=== PATIENT | female | born 1945 | race Caucasian/White ===

== ENCOUNTER 2020-07-17 18:18 | Emergency (ER) | payer MEDICARE, SELFPAY ==
--- NOTE | ~2020-07-17 | XR_ITS ---
EXAMINATION: XR FOOT, LEFT CLINICAL INFORMATION: Pain and swelling COMPARISON: None TECHNIQUE: AP, lateral, and oblique views of the left foot. 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 No radiographic evidence of bone erosions. There is flattening of midfoot arch suggesting pes planus. XR/XR foot LT min 3V IMPRESSION: Intertarsal arthrodesis. Degenerative arthritis first metatarsophalangeal joint. Pes planus.
[2020-07-17 18:37] VITALS: BP 127/99; PULSE 67; RESP 18; TEMP 36.7; O2SAT 94; BMI 24.3
--- NOTE | 2020-07-17 21:22 | ED_ITS ---
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 Reports fell small pinch and looked down and noted discoloration. Denies injury, trauma, crushing, numbness, tingling, fever/chills, known tick/insect or spider bite MD complaint: foot injury Related Data Previous Rx's Medication Instructions Recorded doxycycline hyclate 100 mg PO BID 7 Days #14 tab 07/17/20 Allergies Allergy/AdvReac Type Severity Reaction Status Date / Time NSAIDS (Non-Steroidal Allergy Intermediate DECREASE Verified 07/17/20 18:36 Anti-Inflamma PLATELETS [NSAIDS] meperidine [From Demerol] AdvReac Mild VOMITING Verified 07/17/20 18:36 nicotine [Nicoderm CQ] AdvReac Mild rash Verified 07/17/20 18:36 Review of Systems Review of Systems: Constitutional: No Fever, No Chills Cardiovascular: No Chest Pain, No SOB Respiratory: No Cough, No Wheezing Musculoskeletal: + joint pain, No Myalgias, + Joint Swelling Skin: No Skin Lesions, + rash Neuro: No Weakness, No Numbness, No Paresthesias Yes all other systems are reviewed and are negative Neurologic: Denies Sensory deficit (Neuro) [facility] Past Medical History Attestation statement: The following information was validated with the patient. Medical History (Updated 07/17/20 @ 21:27 by GO Juarez) Hypertension Social History Social History Alcohol intake: never Smoked in Last 30 Days: No Use of substances other than those prescribed or required for medical reasons: No Any prior treatment program specific to substance use: No Advance Directives: No Advance Directives Information Provided: Yes Physical Exam Vital Signs: Vital Signs: Last Vital Signs Temp 98.1 F 07/17/20 18:37 Pulse 67 07/17/20 18:37 Resp 18 07/17/20 18:37 BP 127/99 H 07/17/20 18:37 Pulse Ox 94 07/17/20 18:37 Body Mass Index 24.3 Const: General: cooperative, healthy appearing and comfortable Orientation/consciousness: patient oriented x3 Limitations: no limitations HENMT: Head: Yes normal to inspection Ears: hearing grossly normal bilaterally General nose exam: Normal external nose present Face and sinus: Yes normal facial exam Eyes: General: appearance normal, both eyes and all related structures EOM: EOMs intact bilaterally Neck: Neck: Yes normal visual inspection Resp: Effort & Inspection: normal respiratory effort Cardio: Rate: regular rate Peripheral pulses: dorsalis pedis present Skin: Other: Top of left foot with notable ecchymosis, swelling, and distal erythema. Mild tenderness to palpation. No fluctuance/induration. No pointing/drainage. NV intact. FROM toes/ankle intact Rashes: no rashes Neuro: General: patient oriented x3 Gait exam (Neuro): Normal gait present Sensory Exam: No Sensory deficit (Neuro) Extrem: General: Yes normal to inspection MDM - Extremity Injury (Lower) MDM Narrative Medical decision making narrative: On exam VSS, NAD/well-appearing, physical exam as above. Rule out fracture. Concern for possible spider bite vs bruising vs ?early cellulitis or abscess Discharge Plan Discharge Clinical Impression: Spider bite Qualifiers: Encounter type: initial encounter Injury intent: undetermined intent Qualified Code(s): T63.304A - Toxic effect of unspecified spider venom, undetermined, initial encounter Superficial bruising of foot Qualifiers: Encounter type: initial encounter Laterality: left Qualified Code(s): S90.32XA - Contusion of left foot, initial encounter Patient Disposition: Home, Self-Care Instructions: Insect Bite or Sting (ED) Additional Instructions: Keep a close eye on her foot, ice, elevate Doxycycline as an antibiotic, take as prescribed You should be re-evaluated in 2 days Area is worsening, swelling increases, redness increases, if you or chills weeks return to the ED Prescriptions: New doxycycline hyclate 100 mg tablet 100 mg PO BID 7 Days Qty: 14 RF: 0 Referrals: Trace Dickens MD [Primary Care Provider] - 2 days
== END 2020-07-17 22:43 | disposition home or self-care (01) ==
PROVIDERS: Emergency Provider Emergency Medicine; PCP Internal Medicine
DX: S90.32XA Contusion of left foot, initial encounter (principal); M79.672 Pain in left foot; W57.XXXA Bitten or stung by nonvenomous insect and other nonvenomous arthropods, initial encounter; Y93.9 Activity, unspecified; Y92.009 Unspecified place in unspecified non-institutional (private) residence as the place of occurrence of the external cause; Y99.9 Unspecified external cause status; Z79.899 Other long term (current) drug therapy
CPT/HCPCS: 73630; 99284

== ENCOUNTER 2024-01-02 08:43 | Emergency (ER) | payer MEDICARE, SELFPAY ==
--- NOTE | ~2024-01-02 | XR_ITS ---
EXAMINATION: XR CHEST CLINICAL INFORMATION: Shortness of breath COMPARISON: None available. TECHNIQUE: 2 views of the chest were obtained. FINDINGS: The lungs are well expanded. No focal consolidation. No pleural effusions or pneumothorax. The cardiac mediastinal silhouette is within normal limits. Remote appearing deformity of left lateral sixth rib. Mild degenerative changes of the visualized spine. XR/XR chest 2V IMPRESSION: No acute pulmonary disease. Electronically signed by: Amanuel Rojas MD 01/02/2024 11:32 AM EDT
[2024-01-02 08:44] VITALS: BP 135/68; PULSE 73; RESP 20; TEMP 36.1; O2SAT 95; BMI 22.7
--- NOTE | 2024-01-02 09:09 | ECG_ITS ---
Test Reason : SOB Blood Pressure : / mmHG Vent. Rate : 083 BPM Atrial Rate : 083 BPM P-R Int : 146 ms QRS Dur : 078 ms QT Int : 372 ms P-R-T Axes : 083 009 000 degrees QTc Int : 437 ms Normal sinus rhythm ST & T wave abnormality, consider inferolateral ischemia Abnormal ECG When compared with ECG of 30-DEC-2006 14:30, Premature atrial complexes are no longer Present Vent. rate has increased BY 28 BPM T wave inversion now evident in Inferior leads T wave inversion now evident in Lateral leads QT has lengthened Referred By: Roslyn Maldonado Electronically Signed By:Nba Sow
[2024-01-02 09:16] VITALS: BP 158/71; PULSE 75; RESP 17; TEMP 36.6; O2SAT 95
[2024-01-02] MEDS: Albuterol/Iprat 2.5/0.5MG 3 ML AMPUL.NEB INHALE (09:28)
[2024-01-02 09:30] VITALS: PULSE 86; RESP 18; O2SAT 95
[2024-01-02 09:53] LABS: MANUAL DIFF FLAG NO
[2024-01-02 09:55] LABS: Basophils Absolute Auto 0.1 X10*3/uL (0.0-0.2); Basophils Percent Auto 0.6 % (0-2); Eosinophils Percent Auto 0.1 % (0-4); Hematocrit 41.1 % (37.0-47.0); Hemoglobin 14.3 g/dl (12.0-16.0); Imm Gran Abs Auto 0.03 X10*3/uL (0.00-0.03); Imm Gran Pct Auto 0.3 % (0.0-0.4); Lymphocytes Absolute Auto 0.9 X10*3/uL (1.2-4.9); Lymphocytes Percent Auto 8.4 % (20-40); Mean Corpuscular HGB Conc 34.8 g/dl (31.0-35.0); Mean Corpuscular Volume 86.3 fL (80.0-98.0); Mean Platelet Volume 9.5 fL (9.4-12.3); Monocytes Absolute Auto 1.2 X10*3/uL (0.1-1.2); Monocytes Percent Auto 10.7 % (2-11); Neutrophils Absolute Auto 8.6 x10*3/uL (2.0-8.3); Neutrophils Percent Auto 79.9 % (45-73); Platelet Count 147 X10*3/uL (160-400); Red Blood Count 4.76 X10*6/uL (4.20-5.50); Red Cell Distribution Width 12.4 % (11.0-16.0); White Blood Count 10.8 X10*3/uL (4.8-10.8)
[2024-01-02 10:02] LABS: INTERNATIONAL NORM RATIO 1.1 (0.9-1.1); Prothrombin Time 12.9 SEC (10.9-12.4)
--- NOTE | 2024-01-02 10:12 | ED_ITS ---
HPI - General Adult General Chief complaint: General Medical Stated complaint: Headache, ear ache Time Seen by Provider: 01/02/24 08:59 Source: patient, RN notes reviewed and old records reviewed Mode of arrival: ambulatory History of Present Illness ED Provider: Roslyn Maldonado PA-C HPI narrative: 78-year-old female with a past medical history of hypertension, early COPD, presenting to the ED complaining of productive cough of green sputum, subjective fever, chills, headache, ear pain, SOB, decreased p.o. intake, lethargy/myalgias x 1 week. Denies chest pain, abdominal pain, vomiting, pedal edema, travel, sick contacts Related Data Previous Rx's ?Medication ?Instructions ?Recorded doxycycline hyclate 100 mg tablet 100 mg PO BID 7 days #14 tabs 07/17/20 albuterol sulfate 90 mcg/actuation 2 puff inhalation Q4-6H PRN 01/02/24 aerosol inhaler shortness of breath or wheezing #6.7 grams benzonatate 100 mg capsule 100 mg PO TID PRN cough #14 caps 01/02/24 prednisone 20 mg tablet 40 mg (2 x 20 mg) PO DAILY 5 days 01/02/24 #10 tabs Allergies Allergy/AdvReac Type Severity Reaction Status Date / Time NSAIDS (Non-Steroidal Allergy Intermediate DECREASE Verified 01/02/24 08:52 Anti-Inflamma PLATELETS [NSAIDS] meperidine [From Demerol] AdvReac Mild VOMITING Verified 01/02/24 08:52 nicotine [Nicoderm CQ] AdvReac Mild rash Verified 01/02/24 08:52 Review of Systems 2 Review of Systems: Yes all other systems are reviewed and are negative Constitutional: Constitutional: Reports as per [facility] Past Medical History Attestation statement: The following information was validated with the patient. Source: old records reviewed Medical History Hypertension Social History Social History Alcohol intake: never Smoked in Last 30 Days: No Use of substances other than those prescribed or required for medical reasons: No Advance Directives: No Advance Directives Information Provided: Yes Do you have a plan to hurt others: No Plan Physical Exam ED Vital Signs: Vital Signs - 24 hr 01/02/24 08:44 01/02/24 09:16 01/02/24 09:16 Temperature 97.0 F 97.9 F Pulse Rate 73 75 Respiratory Rate 20 17 17 Blood Pressure 135/68 158/71 H Pulse Oximetry 95 95 Oxygen Delivery Method Room Air Room Air 01/02/24 09:30 01/02/24 11:23 01/02/24 14:17 Temperature 99.0 F 98.3 F Pulse Rate 86 81 81 Respiratory Rate 18 16 16 Blood Pressure 151/71 H 154/73 H Pulse Oximetry 93 92 Oxygen Delivery Method Room Air Room Air 01/02/24 15:23 Temperature 98.3 F Pulse Rate 81 Respiratory Rate 16 Blood Pressure 154/73 H Pulse Oximetry 92 Oxygen Delivery Method Room Air BMI result Body Mass Index 22.7 Const General: cooperative, healthy appearing and no acute distress Orientation/consciousness: patient oriented x3 Limitations: no limitations HENMT Head: Yes normal to inspection and Yes atraumatic Ears: hearing grossly normal bilaterally, external ears normal, TM's normal bilaterally and mastoids normal General nose exam: Normal external nose present Face and sinus: Yes normal facial exam Mouth: Normal oral and palatal mucosa present and no drooling Throat: Yes posterior oropharynx normal, Yes tonsils normal, Yes uvula midline, No peritonsillar mass and No uvular edema Eyes General: appearance normal, both eyes and all related structures EOM: EOMs intact bilaterally Neck Neck: Yes normal visual inspection and Yes no meningeal signs Resp Effort & Inspection: normal respiratory effort and no respiratory distress Auscultation: wheezes expiratory wheezes and throughout Cardio Rate: regular rate Heart sounds: S1 normal heart sound present and S2 normal heart sound present GI Inspection: Yes normal to inspection Palpation (GI): Soft to palpation, nontender, no guarding and not rigid General: Yes no CVA tenderness Back/Spine/Pelvis Back: no CVA tenderness Skin Rashes: no rashes Wounds: no wounds Neuro General: patient oriented x3, tone normal and no meningeal signs Cranial nerves: Yes CN's II-XII intact bilaterally Gait exam (Neuro): Normal gait present Extrem General: Yes normal to inspection, Yes no pedal edema and Yes no calf tenderness Course Course Course Narrative: -labs reassuring. Troponin x2 without significant rise, mi unlikely. -Viral studies negative. Rapid strep negative XR chest 2V IMPRESSION: No acute pulmonary disease. > on re-evaluation lungs CTA. Reports symptomatic improvement. Safe for discharge home at this time. Results discussed with patient including worrisome signs and symptoms and strict return precautions, and when to return to the emergency department. They verbalized understanding and feel safe for discharge at this time. Medications Administered Discontinued Medications Generic Name Dose Route Start Last Admin Trade Name Fredis PRN Reason Stop Dose Admin Acetaminophen 650 mg 01/02/24 15:10 01/02/24 15:23 Acetaminophen 325 Mg Tablet PO 01/02/24 15:11 650 mg ONCE ONE Administration Albuterol/Ipratropium 3 ml 01/02/24 09:23 01/02/24 09:28 Albuterol/Iprat 2.5/0.5mg 3 Ml Ampul.Neb INHALE 01/02/24 09:24 3 ml ONCE ONE Administration Prednisone 40 mg 01/02/24 12:22 01/02/24 12:33 Prednisone 20 Mg Tablet PO 01/02/24 12:23 40 mg ONCE ONE Administration Medical Decision Making Medical Decision Making [facility] Narrative: 78-year-old female with a past medical history of hypertension, early COPD, presenting to the ED complaining of productive cough of green sputum, subjective fever, chills, headache, ear pain, SOB, decreased p.o. intake, lethargy/myalgias x 1 week. On exam vital signs stable, NAD, talking in complete sentences, diffuse expiratory wheeze noted, abdomen soft/nontender, no pedal edema. Concern for viral illness vs bronchitis vs pneumonia vs COPD exacerbation. Low suspicion for severe sepsis at this time. No evidence of ENGRAVER BLOCK/retropharyngeal abscess or otitis media/externa Plan: EKG, labs, CXR, viral testing, ED bronch protocol, re-evaluate Please refer to course for remaining clinical decision making, interpretation of labs/imaging results, and discussions with consultants and/or family members. Differential Diagnosis Differential Diagnoses: The differential diagnosis associated with the presentation includes As above Admission/Observation Consideration of admission/observation: Escalation of care including admission/observation considered Lab Data [facility] Lab Attestation statement: I reviewed the patient's lab results. 01/02/24 09:45 01/02/24 09:45 Labs: Lab Results 01/02/24 01/02/24 01/02/24 Range/Units 09:45 10:05 12:52 WBC 10.8 (4.8-10.8) X10*3/uL RBC 4.76 (4.20-5.50) X10*6/uL Hgb 14.3 (12.0-16.0) g/dl Hct 41.1 (37.0-47.0) % MCV 86.3 (80.0-98.0) fL MCH 30.0 (27.0-33.0) pg MCHC 34.8 (31.0-35.0) g/dl RDW 12.4 (11.0-16.0) % Plt Count 147 L (160-400) X10*3/uL MPV 9.5 (9.4-12.3) fL Immature Gran % (Auto) 0.3 (0.0-0.4) % Neut % (Auto) 79.9 H (45-73) % Lymph % (Auto) 8.4 L (20-40) % [place] % (Auto) 10.7 (2-11) % Eos % (Auto) 0.1 (0-4) % Baso % (Auto) 0.6 (0-2) % Lymph # (Auto) 0.9 L (1.2-4.9) X10*3/uL [place] # (Auto) 1.2 (0.1-1.2) X10*3/uL Eos # (Auto) 0.0 (0.0-0.4) X10*3/uL Baso # (Auto) 0.1 (0.0-0.2) X10*3/uL Abs Immat Gran (auto) 0.03 (0.00-0.03) X10*3/uL Absolute Neuts (auto) 8.6 H (2.0-8.3) x10*3/uL Absolute Nucleated RBC 0.000 (0.0-0.012) X10*3/uL Nucleated RBC % (auto) 0.0 (0.0-0.2) /100WBC PT 12.9 H (10.9-12.4) SEC INR 1.1 (0.9-1.1) Sodium 138 (135-145) mmol/L Potassium 3.7 (3.3-5.1) mmol/L Chloride 103 (96-108) mmol/L Carbon Dioxide 26 (22-29) mmol/L Anion Gap 13 (12-20) BUN 11 (9-16) mg/dL Creatinine 0.64 (0.5-1.4) mg/dL Estim Creat Clear Calc 59.1 Estimated GFR > 60 Random Glucose 136 H (60-115) mg/dL Calcium 9.7 (8.4-10.2) mg/dL Total Bilirubin 1.2 H (0.0-1.0) mg/dL Direct Bilirubin 0.4 (0.0-0.5) mg/dL AST 19 (5-31) U/L ALT 14 (0-31) U/L Alkaline Phosphatase 58 (39-117) U/L Troponin I High Sens 9.7 8.7 (<3.5-17.0) ng/L B-Natriuretic Peptide 149 H (<100) pg/mL Total Protein 6.4 L (6.5-8.0) g/dL Albumin 4.0 (3.5-5.0) g/dL Influenza Type A (PCR) NEGATIVE (Negative) Influenza Type B (PCR) NEGATIVE (Negative) RSV RNA Qual (PCR) NEGATIVE (Negative) SARS-CoV-2 RNA (RT-PCR) NEGATIVE (Negative) S. pyogenes GrpA ELBA Negative (Negative) Independent Interpretation I performed an independent interpretation of an: EKG (My interpretation EKG normal sinus rhythm a rate of 83. QTC 437. T-wave inversion now evident in inferior and lateral leads. QT has lengthened. No STEMI) Radiology Impression Discussion of test interpretation with radiology: I have reviewed the radiologist's reading. Independent Historian Clinical information obtained from an independent historian. History obtained from or confirmed by: Spouse External Record Review External record reviewed: Inpatient record, Office record, Outpatient record, Prior outpatient labs, Prior outpatient radiology, Primary care record and Outside ED record Tests considered The following testing was considered but not selected: As above Prescription Management I considered prescription management with: Pain Medication and Antibiotic Chronic Conditions Patient?s care impacted by: Other Discharge Plan Discharge Clinical Impression: Bronchitis Patient Disposition: Home, Self-Care Instructions: Acute Bronchitis (ED) Additional Instructions: Your blood work, viral testing, and x-ray were reassuring Please have close follow-up with her doctor Please use albuterol inhaler as needed for shortness of breath/wheezing Prednisone as a steroid please take as prescribed Edwin Knowles for cough, take as needed If her symptoms persist or worsen return to the ED Prescriptions: New prednisone 20 mg tablet 40 mg PO DAILY 5 Days Qty: 10 0RF benzonatate 100 mg capsule 100 mg PO TID PRN (Reason: cough) Qty: 14 0RF albuterol sulfate 90 mcg/actuation HFA aerosol inhaler 2 puff inhalation Q4-6H PRN (Reason: shortness of breath or wheezing) Qty: 6.7 0RF No Action doxycycline hyclate 100 mg tablet 100 mg PO BID 7 Days Qty: 14 0RF Referrals: Trace Dickens MD [Primary Care Provider] - 3 days Interventions: ED Discharge Assessment Last Done: 01/02/24 15:23 Discharge Date/Time: 01/02/24 15:33 Print Language: [place]ian
[2024-01-02 10:17] LABS: Alanine Aminotransferase 14 U/L (0-31); Alkaline Phosphatase 58 U/L (39-117); Anion Gap 13 (12-20); Aspartate Amino Transferase 19 U/L (5-31); Bilirubin Direct 0.4 mg/dL (0.0-0.5); Bilirubin Total 1.2 mg/dL (0.0-1.0); Blood Urea Nitrogen 11 mg/dL (9-16); Calcium 9.7 mg/dL (8.4-10.2); Carbon Dioxide 26 mmol/L (22-29); Chloride 103 mmol/L (96-108); Creatinine Clr Calc Pharmacy 59.1; Estimated Glomerular Filt Rate > 60; Glucose Random 136 mg/dL (60-115); Potassium 3.7 mmol/L (3.3-5.1); Sodium 138 mmol/L (135-145); Total Protein 6.4 g/dL (6.5-8.0)
[2024-01-02 10:24] LABS: Troponin-I High Sensitivity 9.7 ng/L (<3.5-17.0)
[2024-01-02 10:31] LABS: Influenza A PCR NEGATIVE (Negative); Influenza B PCR NEGATIVE (Negative); Resp Syncy Virus RNA Qual PCR NEGATIVE (Negative); SARS COV2 PCR INHOUSE NEGATIVE (Negative)
[2024-01-02 10:46] LABS: IDNOW Serial# 08D9AD1C; Strep A Nucleic Acid Negative (Negative)
[2024-01-02 10:57] LABS: B Type Natriuretic Peptide 149 pg/mL (<100)
[2024-01-02 11:23] VITALS: BP 151/71; PULSE 81; RESP 16; TEMP 37.2; O2SAT 93
--- NOTE | 2024-01-02 11:25 | PC.NURSE ---
Pt comes to ED today with c/o cough, wheezing, SOB, n/v/d x7-10 days. Junky cough noted--Pt seen by RT. Pt with stress incontinence of bowels from coughing on arrival. VSS, afebrile, A&Ox3
[2024-01-02] MEDS: predniSONE 20 MG TABLET 40 MG PO (12:33)
[2024-01-02 13:21] LABS: Troponin-I High Sensitivity 8.7 ng/L (<3.5-17.0)
[2024-01-02 14:17] VITALS: BP 154/73; PULSE 81; RESP 16; TEMP 36.8; O2SAT 92
[2024-01-02 15:23] VITALS: BP 154/73; PULSE 81; RESP 16; TEMP 36.8; O2SAT 92
[2024-01-02] MEDS: Acetaminophen 325 MG TABLET 650 MG PO (15:23)
== END 2024-01-02 15:33 | disposition home or self-care (01) ==
PROVIDERS: Physician Assistant; Emergency Provider Emergency Medicine; PCP Internal Medicine
DX: J40 Bronchitis, not specified as acute or chronic (principal); R51.9 Headache, unspecified; H92.03 Otalgia, bilateral; R05.9 Cough, unspecified; M79.10 Myalgia, unspecified site; R06.02 Shortness of breath; R94.31 Abnormal electrocardiogram [ECG] [EKG]; Z03.818 Encounter for observation for suspected exposure to other biological agents ruled out; Z79.899 Other long term (current) drug therapy
CPT/HCPCS: 0241U; 36415; 71046; 80048; 80076; 83880; 84484; 85025; 85610; 87651; 93005; 94640; 99283; 99285

== ENCOUNTER → 2024-01-02 09:09 | Outpatient (BNV) | payer MEDICARE, SELFPAY | PROVIDERS: Emergency Provider Emergency Medicine; PCP Internal Medicine; Visit Provider Internal Medicine Cardiovascular Disease | DX: R06.02 Shortness of breath (principal); R94.31 Abnormal electrocardiogram [ECG] [EKG] | CPT/HCPCS: 93010 ==

== ENCOUNTER 2024-03-02 07:58 | Emergency (ER) | payer MEDICARE, SELFPAY ==
--- NOTE | ~2024-03-02 | XR_ITS ---
EXAMINATION: XR FOOT, RIGHT CLINICAL INFORMATION: pain/swelling COMPARISON: None TECHNIQUE: AP, lateral, and oblique views of the right foot. FINDINGS: Diffuse demineralization. Marked degenerative changes in the first metatarsophalangeal joint with joint space narrowing and hypertrophic change. Mild degenerative changes in the IP joints of the toes. Mild periosteal reaction along the proximal medial third metatarsal shaft and proximal lateral fourth metatarsal shaft. Degenerative changes at the tarsometatarsal joints and on limited images of the mid foot. Tiny plantar and posterior calcaneal spurs. XR/XR foot RT min 3V IMPRESSION: Degenerative changes in the foot as detailed above most notable in the first metatarsophalangeal joint. Additional findings as detailed above. Correlation with clinical exam recommended to determine further management. This study was presented today to March 02, 2024 for interpretation. Stat results provided at this time as requested by referring provider. Electronically signed by: Becca Castro MD 03/02/2024 08:49 AM [facility]
--- OUTSIDE RECORDS SUMMARY | 2024-03-02 08:00 | XMS_ITS | Continuity of Care Document ---
Author Organization [facility] Zhou lt Address [address] [place] [address]- Care Team Providers Care Concrete Curer Name Role Phone Chrissie MCDONNELL, Trace Coffman Primary Care Physician [phone] Encounter [facility] Date(s): 01/15/24 - 02/14/24 [facility] Adult [address] [place] [address]- Encounter Type: Triage Allergies, Adverse Reactions, Alerts Substance Criticality Severity Reaction Reaction Severity Status Demerol HCl vomiting Active Immunizations Given and Recorded Vaccine Date Status Refusal Reason influenza virus vaccine, inactivated 11/12/23 Eusebio rded influenza virus vaccine, inactivated 12/06/22 Eusebio rded influenza virus vaccine, inactivated 11/28/20 Eusebio rded influenza virus vaccine, inactivated 11/13/19 Eusebio rded influenza virus vaccine, inactivated 1 12/11/17 Re corded influenza virus vaccine, inactivated 11/07/17 Eusebio rded influenza virus vaccine, inactivated 2 01/02/17 Re corded influenza virus vaccine, inactivated 3, 4 12/12/15 Recorded influenza virus vaccine, inactivated 5, 6 12/10/14 Recorded influenza virus vaccine, inactivated 12/26/13 Eusebio rded influenza virus vaccine, inactivated 12/17/12 Give n influenza virus vaccine, inactivated 03/10/10 Eusebio rded SARS-CoV-2(COVID-19)mRNA-LNP vac([id number]) 11/12/23 Recorded RSV vaccine preF3, recombinant 12/18/22 Recorded SARS-CoV-2 (COVID-19) mRNA-1273 vaccine 12/06/22 R ecorded SARS-CoV-2 mRNA (iyfkmiw-qyoa-llxtc) vax 7 12/01/21 Recorded SARS-CoV-2 mRNA (azznuaz-lsou-ndlvr) vax 05/19/21 Recorded Influenza Virus Vaccine (oldterm) 8 11/10/21 Recor ded Influenza Virus Vaccine (oldterm) 10/27/19 Recorde d Influenza Virus Vaccine (oldterm) 11/12/18 Recorde d SARS-CoV-2 (COVID-19) mRNA BNT-162b2 vac 12/16/20 Recorded SARS-CoV-2 (COVID-19) mRNA BNT-162b2 vac 06/11/20 Recorded SARS-CoV-2 (COVID-19) mRNA BNT-162b2 vac 05/21/20 Recorded Zoster Vaccine Live 12/30/19 Recorded Zoster Vaccine Live 9 01/27/14 Given zoster vaccine, inactivated 10/27/19 Recorded zoster vaccine, inactivated 08/09/18 Recorded zoster vaccine, inactivated 06/09/18 Recorded pneumococcal 13-valent vaccine 06/11/14 Given tetanus/diphtheria/pertussis, acel(Tdap) 06/17/13 Given pneumococcal 23-valent vaccine 06/17/10 Given [facility] 2[facility] [01/07/2017[facility] high dose 3Location History: [facility] 4Result Comment: [12/15/2015] H[facility] DOSE [facility] 6Result Comment: [12/15/2014] HIGH DOSE 7Result Comment: Moderna Covid Bivalent Booster [facility] 8Result Comment: Flu shot high dose [facility] 9Result Comment: [01/29/2014] [facility] Medications albuterol 0.083% inhalation solution 3 mL = 2.5 mg, Inhalation, Every 6 hours, PRN asthma exacerbation, # 100 each, 11 Refills, Maintenance, 01/08/24 9:47:00 AM EDT, Solution, Partial fill upon patient request if the prescription is fora schedule II opioid drug. Start Date: 01/08/24 Status: Ordered Quantity: 100.0 Unit: each Repeat number: 12 atenolol 25 mg oral tablet 1, tablet, By Mouth, 2 times a day, # 180 tablet, Refills 1, Tot. Refills 1, 07/25/23 10:35:00 AM EDT, Route to [facility]ically, [id number], 160, cm, 07/25/23 10:07:00 EDT, Height Start Date: 07/25/23 Status: Ordered Quantity: 180.0 Unit: tablet Repeat number: 2 Centrum Silver By Mouth, Daily, 0 Refills, Maintenance, 10/07/20 2:08:00 PM EDT, Partial fill upon patient request if the prescription is for a schedule II opioid drug. Start Date: 10/07/20 Status: Ordered Repeat number: 1 FLUoxetine 40 mg oral capsule 1 capsule, By Mouth, Daily, # 90 capsule, 3 Refills, Maintenance, 07/25/23 10:34:00 AM EDT, [facility]/pharmacy #[id number], 160, cm, 07/25/23 10:07:00 EDT, Height Start Date: 07/25/23 Status: Ordered Quantity: 90.0 Unit: capsule Repeat number: 4 fluticasone 50 mcg/inh nasal spray 1 sprays = 50 mcg, Nares, Both, 2 times a day, # 16 Gm, 11 Refills, Maintenance, 07/25/23 10:41:00 AM EDT, [place], [facility]/pharmacy #[id number], Partial fill upon patient request if the prescription is for a schedule II opioid drug., 1 sprays Nares, Both 2 times a day, 160, cm, 07/25/23 10:07:00 EDT, Height Start Date: 07/25/23 Status: Ordered Quantity: 16.0 Unit: g Repeat number: 12 hydroCHLOROthiazide 12.5 mg oral capsule 1 capsule, By Mouth, Daily, # 90 capsule, 1 Refills, Maintenance, 07/25/23 10:34:00 AM EDT, [facility]/pharmacy #[id number], 160, cm, 07/25/23 10:07:00 EDT, Height Start Date: 07/25/23 Status: Ordered Quantity: 90.0 Unit: capsule Repeat number: 2 Misc Rx See Instructions, Refills 0, Maintenance, over the counter Healthy Lung 1 tablet daily, 07/25/23 10:19:00 AM EDT, Supply Start Date: 07/25/23 Status: Ordered Repeat number: 1 Nebulizer/Compressor See Instructions, # 1 each, Maintenance, Use 4 times a day as needed for COPD exacerbation., 01/08/24 9:46:00 AM EDT, Supply Start Date: 01/08/24 Status: Ordered Quantity: 1.0 Unit: each Repeat number: 1 PREVAGEN PREVAGEN, Refills 0, Maintenance, 05/18/16 1:19:09 PM EST, Compound Start Date: 05/18/16 Status: Ordered Repeat number: 1 ProAir HFA 90 mcg/inh inhalation aerosol with adapter 2, puffs, Inhalation, Every 6 hours, PRN, # 8.5 Gm, Refills 11, Tot. Refills 11, Maintenance, 09/29/19 4:43:00 PM EDT, Aerosol, Route to Pharmacy Electronically, [id number], [facility]/pharmacy #[id number], 157.48, cm, 09/29/19 16:05:00 EDT, Height Start Date: 09/29/19 Status: Ordered Quantity: 8.5 Unit: g Repeat number: 12 Probiotic Formula 1 capsule, By Mouth, Daily, 0 Refills, Maintenance, 01/06/15 11:17:38 AM EDT Start Date: 01/06/15 Status: Ordered Repeat number: 1 SUMAtriptan 25 mg oral tablet 1 tablet, By Mouth, Daily, PRN NEEDED FOR MIGRAINE,MAY REPEAT DOSE AFTER 2 HOURS,MAX 2, DAILY., # 18 tablet, 5 Refills, Maintenance, 07/25/23 10:34:00 AM EDT, [facility]/pharmacy #[id number], 160, cm, 07/25/23 10:07:00 EDT, Height Start Date: 07/25/23 Status: Ordered Quantity: 18.0 Unit: tablet Repeat number: 6 Symbicort 160mcg/4.5mcg Inhaler 2, puffs, Inhalation, 2 times a day, # 10.2 Gm, Refills 11, Tot. Refills 11, Maintenance, 01/15/24 8:35:00 AM EST, Aerosol, Route to Pharmacy Electronically, [id number], [facility]/pharmacy #[id number], 160, cm, 01/08/24 9:08:00 EDT, Height Start Date: 01/15/24 Status: Ordered Quantity: 10.2 Unit: g Repeat number: 12 valsartan 80 mg oral tablet 1, tablet, By Mouth, Daily, # 90 tablet, Refills 1, Tot. Refills 1, Maintenance, 07/25/23 10:35:00 AM EDT, Route to Pharmacy Electronically, [facility]/pharmacy #[id number], 160, cm, 07/25/23 10:07:00 EDT, Height Start Date: 07/25/23 Status: Ordered Quantity: 90.0 Unit: tablet Repeat number: 2 Problem List Condition Confirmation Course Effective Dates Status Health Status Informant Adenomatous colon polyp 1, 2 Confirmed Active Anxiety Confirmed Active Atrophic vaginitis Confirmed Active Foot pain, left Confirmed Active Left calcaneal fracture Confirmed Active Esophageal reflux Confirmed Active Hx of migraine headaches Confirmed Active S/p appendectomy Confirmed Active History of colonoscopy 3 Confirmed Active S/P lumbar microdiscectomy Confirmed Active History of COVID-19 Confirmed Active Hypercholesterolemia Confirmed Active Hypertension Confirmed Active Idiopathic thrombocytopenic purpura (ITP) 4 Confirmed Active Mild intermittent asthma Confirmed Active Lung nodule Confirmed 09/14/20 Active Osteoporosis 5, 6, 7 Confirmed Active Stage 3 severe chronic obstructive pulmonary disease by Global Initiative for Chronic Obstructive Lung Disease classification Confirmed 09/28/20 Active Thyroid nodule 8 Confirmed Active 1Colonoscopy 2013 normal, repeat 2019 2Colonoscopy 2007 positive polyp, requiring transanal surgery, repeat colo scheduled for November 2013. [id number]; repeat [address] Narayan yearly 5Bone density 2020 osteopenia but no osteoporosis. 6Bone Density 2016; repeat 2019 7Osteoporosis on one view on bone density. 8CT scan of Lung 2016: 7 mm nodule in the left thyroid lobe with adjacent 2 x 4 mm coarse calcification. Social History Social History Type Response Smoking Status Former smoker, quit more than 30 days ago; Other: quit 2013; 1 ppd x 45 yrs; entered on: 11/04/20 Sex Sex Representation Female (finding) Patient Care team information Care Team Personnel Name: Trace Dickens MD Position: S Physician - Primary Care Member Role: PCP Address: [address] [place] [address]- Telecom: Care Team Related Persons Name: JONG FARR Name: GRACE CARRIZALES Insurance Providers Guarantor name: PARISH FARR Health Plan Information #: 1 Payer: [facility] [employer] Member Number: NA Policy Number: NA Group Number: NA
--- OUTSIDE RECORDS SUMMARY | 2024-03-02 08:00 | XMS_ITS | Continuity of Care Document ---
Author Organization [facility] Zhou lt Address [address] [place] [address]- Care Team Providers Care International Travel Consultant Name Role Phone Chrissie MCDONNELL, Trace Coffman Primary Care Physician Encounter [facility] Date(s): 01/22/24 - 02/21/24 [facility] Adult [address] [place] [address]- Encounter Type: Triage Allergies, Adverse Reactions, Alerts [...] virus vaccine, inactivated 03/10/10 Eusebio rded SARS-CoV-2(COVID-19)mRNA-LNP vac([id number]) 11/12/23 Recorded RSV vaccine preF3, recombinant 12/18/22 Recorded SARS-CoV-2 (COVID-19) mRNA-1273 vaccine 12/06/22 R ecorded SARS-CoV-2 mRNA (pfnqxil-vacg-arugc) vax 7 12/01/21 Recorded SARS-CoV-2 mRNA (bbskrme-fyxg-veuft) vax 05/19/21 Recorded Influenza Virus Vaccine (oldterm) [...] [facility]: [facility] 2Result Comment: [01/07/2017] [facility] high dose 3Location History: [facility] 4Result Comment: [12/15/2015] HIGH DOSE [facility] 6Result Comment: [12/15/2014] [facility] 7Result Comment: Moderna Covid Bivalent Booster [facility] Pharmacy 8Result Comment: Flu shot high dose [facility] Pharm[facility] 9Result Comment: [01/29/2014] [facility] Medications albuterol 0.083% inhalation solution 3 [...] 180 tablet, Refills 1, Tot. Refills 1, Maintenance, 02/21/24 1:32:00 PM EST, Route to Pharmacy Electronically, [id number], 160, cm, 01/27/24 8:40:00 EST,Height Start Date: 02/21/24 Status: Ordered Quantity: 180.0 Unit: tablet Repeat [...] 3 Refills, Maintenance, 07/25/23 10:34:00 AM EDT, [facility]/pharmacy #[id number], 160, cm, 07/25/23 10:07:00 EDT, Height Start Date: 07/25/23 Status: Ordered Quantity: 90.0 Unit: capsule Repeat number: 4 fluticasone 50 mcg/inh nasal spray 1 sprays = 50 mcg, Nares, Both, 2 times a day, # 16 Gm, 11 Refills, Maintenance, 07/25/23 10:41:00 AM EDT, [place], [facility]/pharmacy #[id number], Partial fill upon patient request if the prescription is for a schedule II opioid drug., 1 sprays Nares, Both 2 times a day, 160, cm, 07/25/23 10:07:00 EDT, Height Start Date: 07/25/23 Status: Ordered Quantity: 16.0 Unit: g Repeat number: 12 hydroCHLOROthiazide 12.5 mg oral capsule 1 capsule, By Mouth, Daily, # 90 capsule, 1 Refills, Maintenance, 07/25/23 10:34:00 AM EDT, [facility]/pharmacy #[id number], 160, cm, 07/25/23 10:07:00 EDT, [...] PM EDT, Aerosol, Route to Pharmacy Electronically, [id number], [facility]/pharmacy #[id number], 157.48, cm, 09/29/19 16:05:00 EDT, [...] 5 Refills, Maintenance, 07/25/23 10:34:00 AM EDT, [facility]/pharmacy #[id number], 160, cm, 07/25/23 10:07:00 EDT, Height Start Date: 07/25/23 Status: Ordered Quantity: 18.0 Unit: tablet Repeat number: 6 Symbicort 160mcg/4.5mcg Inhaler 2, puffs, Inhalation, 2 times a day, # 10.2 Gm, Refills 11, Tot. Refills 11, Maintenance, 01/15/24 8:35:00 AM EST, Aerosol, Route to Pharmacy Electronically, [id number], [facility]/pharmacy #[id number], 160, cm, 01/08/24 9:08:00 EDT, Height Start Date: 01/15/24 Status: Ordered Quantity: 10.2 Unit: g Repeat number: 12 valsartan 80 mg oral tablet 1, tablet, By Mouth, Daily, # 90 tablet, Refills 1, Tot. Refills 1, Maintenance, 07/25/23 10:35:00 AM EDT, Route to Pharmacy Electronically, [facility]/pharmacy #[id number], 160, cm, 07/25/23 10:07:00 EDT, [...] surgery, repeat colo scheduled for November 2013. [id number]; repeat [address] Narayan yearly [...] - Primary Care Member Role: PCP Address: [address] [place] [address]- Telecom: Care Team Related Persons Name: JONG FARR Name: GRACE CARRIZALES Insurance Providers Guarantor name: PARISH FARR Health Plan Information #: 1 Payer: [facility] ADVANT[facility] REPLC Member Number: NA Policy Number: NA Group Number: NA
--- OUTSIDE RECORDS SUMMARY | 2024-03-02 08:01 | XMS_ITS | Patient Health Record ---
Author [facility] Address [address] [place] [address] Care Team Providers Care It Application Development Manager Name Role Phone Trace Dickens MD Primary Care Provider Santhosh Ramey Unavailable [phone] Allergies Allergen (clinical drug ingredient) Drug/Non Drug Allergy documented on EMR Reaction Allergy Type Onset Date Status Sunlight (uncoded) bumps Allergy A ctive meperidine Demerol vomiting Drug Allergy Active Sunscreen SPF30 Red Buring neutrogena /helioplex Drug Allergy Active Reason For Referral No Information Medications Medication SIG (Take, Route, Frequency, Duration) Notes Start Date End Date Status Rtrxjjhbyz-PIVI-Rsxtrwmm 50-325-40 MG 1 capsule as needed Orally every 4 hrs Active Atenolol 25 MG 1 tablet Orally Once a day for 30 day(s) Active hydroCHLOROthiazide 12.5 MG 1 tablet in the morning Orally Once a day for 30 day(s) Active Fortify Daily Probiotic Active Focused Mind Focus Factor 1x day Active FLUoxetine HCl 40 MG 1 capsule Orally Once a day for 30 day(s) Active Valsartan 80 MG 1 tablet Orally Once a day for 30 day(s) Active Multivitamin Women A ctive Immunizations Vaccine Route Administration Date Status Comme nts COVID-19 Moderna Vaccine Unknown 12/09/2021 Administered 2020,2020 2020,2021 unsure dates Social History Tobacco Use: Social History Observation Description Date Details (start date - stop date) Former Smoker NA - NA Tobacco Use/Smoking Question Answer Notes Are you a: former smoker Additional Findings: Tobacco Non-User Ex-cigaret te smoker Alcohol Screen Question Answer Notes Did you have a drink containing alcohol in the p ast year? No Points 0 Interpretation Negative Tobacco use other than smoking: Question Answer Notes Are you an other tobacco user? No Plan Of Treatment No Information Insurance Providers Payer Name Payer Address Payer Phone Subscriber Number Group Number Insured Name Patient Relationship to Insured Coverage Start Date Coverage End Date [employer] [place] [employer]vantage [facility] [address] [place] [address] [id number] Jodee Moe Self - patient is the insured Medical (General) History Medical History History ICD Code Broken bones Depression Headaches/Migraines High blood pressure Mumps Chicken pox Joint implants/screws Surgical History Surgery Date(Month/Year) back surgery 1973 broken heel, left 2009, 03/2011 colon polyps 2006 appendectomy 1974 ovarian surgery, right 1973
--- OUTSIDE RECORDS SUMMARY | 2024-03-02 08:01 | XMS_ITS | Continuity of Care Document ---
Author Organization [facility] Zhou lt Address [address] [place] [address]- Care Team Providers Care Automatic Vulcanizing Operator Name Role Phone Chrissie MCDONNELL, Trace Coffman Primary Care Physician [phone] [place] [facility] Date(s): 01/27/24 - 02/03/24 [facility] Adult [address] [place] [address]- Encounter Diagnosis Hypertension(Discharge Diagnosis) - 01/27/24 Anxiety(Discharge Diagnosis) - 01/27/24 Depression, major, recurrent, in remission(Discharge Diagnosis) - 01/27/24 Hx of migraine headaches(Discharge Diagnosis) - 01/27/24 Stage 3 severe chronic obstructive pulmonary disease by Global Initiative for Chronic Obstructive Lung Disease classification(Discharge Diagnosis) - 01/27/24 Mild intermittent asthma(Discharge Diagnosis) - 01/27/24 Idiopathic thrombocytopenic purpura (ITP)(Discharge Diagnosis) - 01/27/24 Lung nodule(Discharge Diagnosis) - 01/27/24 Attending Physician: Nargis Salmon NP Referring Physician: Trace Dickens MD Encounter Type: Office Visit Allergies, Adverse Reactions, Alerts Substance Criticality Severity [...] virus vaccine, inactivated 03/10/10 Eusebio rded SARS-CoV-2(COVID-19)mRNA-LNP vac([id number]) 11/12/23 Recorded RSV vaccine preF3, recombinant 12/18/22 Recorded SARS-CoV-2 (COVID-19) mRNA-1273 vaccine 12/06/22 R ecorded SARS-CoV-2 mRNA (nlllpyw-vfpz-xceqg) vax 7 12/01/21 Recorded SARS-CoV-2 mRNA (avrotle-pnox-zstwk) vax 05/19/21 Recorded Influenza Virus Vaccine (oldterm) [...] [facility]: [facility] 4Result Comment: [12/15/2015] [facility] 6Result Comment: [12/15/2014] [facility] 7Result Comment: Moderna Covid Bivalent Booster [facility] 8Result Comment: Flu shot [facility] 9[facility]: [[facility]29/2014[facility] albuterol 0.083% inhalation solution 3 mL [...] 10:35:00 AM EDT, Route to Pharmacy Electronically, [facility]/pharmacy #[id number], 160, cm, 07/25/23 10:07:00 EDT, Height [...] 3 Refills, Maintenance, 07/25/23 10:34:00 AM EDT, [facility]/pharmacy #[id number], 160, cm, 07/25/23 10:07:00 EDT, Height Start Date: 07/25/23 Status: Ordered Quantity: 90.0 Unit: capsule Repeat number: 4 fluticasone 50 mcg/inh nasal spray 1 sprays = 50 mcg, Nares, Both, 2 times a day, # 16 Gm, 11 Refills, Maintenance, 07/25/23 10:41:00 AM EDT, [place], [facility]/pharmacy #[id number], Partial fill upon patient request if the prescription is for a schedule II opioid drug., 1 sprays Nares, Both 2 times a day, 160, cm, 07/25/23 10:07:00 EDT, Height Start Date: 07/25/23 Status: Ordered Quantity: 16.0 Unit: g Repeat number: 12 hydroCHLOROthiazide 12.5 mg oral capsule 1 capsule, By Mouth, Daily, # 90 capsule, 1 Refills, Maintenance, 07/25/23 10:34:00 AM EDT, [facility]/pharmacy #[id number], 160, cm, 07/25/23 10:07:00 EDT, Height [...] PM EDT, Aerosol, Route to Pharmacy Electronically, [id number], [facility]/pharmacy #[id number], 157.48, cm, 09/29/19 16:05:00 EDT, Height [...] 5 Refills, Maintenance, 07/25/23 10:34:00 AM EDT, [facility]/pharmacy #[id number], 160, cm, 07/25/23 10:07:00 EDT, Height Start Date: 07/25/23 Status: Ordered Quantity: 18.0 Unit: tablet Repeat number: 6 Symbicort 160mcg/4.5mcg Inhaler 2, puffs, Inhalation, 2 times a day, # 10.2 Gm, Refills 11, Tot. Refills 11, Maintenance, 01/15/24 8:35:00 AM EST, Aerosol, Route to Pharmacy Electronically, [id number], [facility]/pharmacy #[id number], 160, cm, 01/08/24 9:08:00 EDT, Height Start Date: 01/15/24 Status: Ordered Quantity: 10.2 Unit: g Repeat number: 12 valsartan 80 mg oral tablet 1, tablet, By Mouth, Daily, # 90 tablet, Refills 1, Tot. Refills 1, Maintenance, 07/25/23 10:35:00 AM EDT, Route to Pharmacy Electronically, [facility]/pharmacy #[id number], 160, cm, 07/25/23 10:07:00 EDT, Height [...] 8 Confirmed Active 1Colonoscopy 2013 normal, repeat 2018 2Colonoscopy 2007 positive polyp, requiring transanal surgery, repeat colo scheduled for November 2013. [id number]; repeat [address] Narayan yearly 5Bone density 2020 osteopenia but no osteoporosis. 6Bone Density 2017; repeat 2019 7Osteoporosis on one view on bone density. 8CT scan of Lung 2016: 7 mm nodule in the left thyroid lobe with adjacent 2 x 4 mm coarse calcification. Diagnosis Diagnosis Type Effective Dates Health Status Clinical Service Informant Hypertension Discharge Diagnosis 01/27/24 Anxiety Discharge Diagnosis 01/27/24 Depression, major, recurrent, in remission Discharge Diagnosis 01/27/24 Hx of migraine headaches Discharge Diagnosis 01/27/24 Stage 3 severe chronic obstructive pulmonary disease by Global Initiative for Chronic Obstructive Lung Disease classification Discharge Diagnosis 01/27/24 Mild intermittent asthma Discharge Diagnosis 01/27/24 Idiopathic thrombocytopenic purpura (ITP) Discharge Diagnosis 01/27/24 Lung nodule Discharge Diagnosis 01/27/24 Vital Signs Most recent to oldest [Reference Range]: 1 2 Height 160 cm (01/27/24 8:40 AM) 160 cm (01/24/24 3:33 PM) Weight 58.3 kg (01/27/24 8:40 AM) 56.0 kg (01/24/24 3:33 PM) Oxygen Saturation [94-100 %] 97 % (01/27/24 8:40 AM) Pulse Rate [55-90 bpm] 56 bpm (01/27/24 8:40 AM) Body Mass Index [18.5-24.99 kg/m2] 22.77 kg/m2 (01/27/24 8:40 AM) Blood Pressure [90-138/55-84 mm Hg] 158/ 78mm Hg *H* (01/27/24 8:40 AM) Temperature [96.8-100.4 DegF] 97.6 DegF (01/27/24 8:40 AM) Mode of Delivery (Oxygen) Room air (01/27/24 8:40 AM) Blood pressure sites Arm, left (01/27/24 8:40 AM) Temperature Route Oral (01/27/24 8:40 AM) Weight Obtained Via Standing scale (01/27/24 8:40 AM) Social History Social History Type Response Smoking Status Former smoker, quit more than 30 days ago; Other: quit 2013; 1 ppd x 45 yrs; entered on: 11/04/20 Sex Sex Representation Female (finding) Patient Care team information Care Team Personnel Name: Trace Dickens MD Position: S Physician - Primary Care Member Role: PCP Address: [address] [place] [address]- Telecom: Care Team Related Persons Name: JONG FARR Name: GRACE CARRIZALES Insurance Providers Guarantor name: PARISH FARR Gyst Plan Information #: 1 Payer: [facility] [employer] Member Number: [id number] Policy Number: NA Group Number: [id number] Health Plan Information #: 2 Payer: [facility] [employer] Member Number: [id number] Policy Number: NA Group Number: NA
--- OUTSIDE RECORDS SUMMARY | 2024-03-02 08:01 | XMS_ITS | Continuity of Care Document ---
Author Organization [facility] Zhou lt Address [address] [place] [address]- Care Team Providers Care Transit Clerk Name Role Phone Chrissie MCDONNELL, Trace Coffman Primary Care Physician [phone] Encounter [facility] Date(s): 01/15/24 - 02/14/24 [facility] Adult [address] [place] [address]- Encounter Type: Triage Allergies, Adverse Reactions, Alerts [...] virus vaccine, inactivated 03/10/10 Eusebio rded SARS-CoV-2(COVID-19)mRNA-LNP vac([id number]) 11/12/23 Recorded RSV vaccine preF3, recombinant 12/18/22 Recorded SARS-CoV-2 (COVID-19) mRNA-1273 vaccine 12/06/22 R ecorded SARS-CoV-2 mRNA (clgphps-dgtn-cdidw) vax 7 12/01/21 Recorded SARS-CoV-2 mRNA (uhqsdnj-boxd-otqab) vax 05/19/21 Recorded Influenza Virus Vaccine (oldterm) [...] [facility]] [facility] 2[facility] Comment: [01/07/2017[facility] high dose 3Location History: [facility] 4Result Comment: [12/15/2015] H[facility] DOSE [facility] 6Result Comment: [12/15/2014] [facility] 7Result Comment: Moderna Covid Bivalent Booster [facility] 8Result Comment: Flu shot high dose [facility] 9Result Comment: [01/29/2014] [facility] Medications albuterol 0.083% inhalation solution 3 [...] AM EDT, Route to [facility] Electronically, [id number], 160, cm, 07/25/23 10:07:00 EDT, Height Start [...] 3 Refills, Maintenance, 07/25/23 10:34:00 AM EDT, [facility]/pharmacy #[id number], 160, cm, 07/25/23 10:07:00 EDT, Height Start Date: 07/25/23 Status: Ordered Quantity: 90.0 Unit: capsule Repeat number: 4 fluticasone 50 mcg/inh nasal spray 1 sprays = 50 mcg, Nares, Both, 2 times a day, # 16 Gm, 11 Refills, Maintenance, 07/25/23 10:41:00 AM EDT, [place], [facility]/pharmacy #[id number], Partial fill upon patient request if the prescription is for a schedule II opioid drug., 1 sprays Nares, Both 2 times a day, 160, cm, 07/25/23 10:07:00 EDT, Height Start Date: 07/25/23 Status: Ordered Quantity: 16.0 Unit: g Repeat number: 12 hydroCHLOROthiazide 12.5 mg oral capsule 1 capsule, By Mouth, Daily, # 90 capsule, 1 Refills, Maintenance, 07/25/23 10:34:00 AM EDT, [facility]/pharmacy #[id number], 160, cm, 07/25/23 10:07:00 EDT, [...] PM EDT, Aerosol, Route to Pharmacy Electronically, [id number], [facility]/pharmacy #[id number], 157.48, cm, 09/29/19 16:05:00 EDT, [...] 5 Refills, Maintenance, 07/25/23 10:34:00 AM EDT, [facility]/pharmacy #[id number], 160, cm, 07/25/23 10:07:00 EDT, Height Start Date: 07/25/23 Status: Ordered Quantity: 18.0 Unit: tablet Repeat number: 6 Symbicort 160mcg/4.5mcg Inhaler 2, puffs, Inhalation, 2 times a day, # 10.2 Gm, Refills 11, Tot. Refills 11, Maintenance, 01/15/24 8:35:00 AM EST, Aerosol, Route to Pharmacy Electronically, [id number], [facility]/pharmacy #[id number], 160, cm, 01/08/24 9:08:00 EDT, Height Start Date: 01/15/24 Status: Ordered Quantity: 10.2 Unit: g Repeat number: 12 valsartan 80 mg oral tablet 1, tablet, By Mouth, Daily, # 90 tablet, Refills 1, Tot. Refills 1, Maintenance, 07/25/23 10:35:00 AM EDT, Route to Pharmacy Electronically, [facility]/pharmacy #[id number], 160, cm, 07/25/23 10:07:00 EDT, [...] surgery, repeat colo scheduled for November 2013. [id number]; repeat [address] Narayan yearly [...] - Primary Care Member Role: PCP Address: [address] [place] [address]- Telecom: Care Team Related Persons Name: JONG FARR Name: GRACE CARRIZALES Insurance Providers Guarantor name: PARISH FARR Health Plan Information #: 1 Payer: [facility] ADVANTAGE REPLC Member Number: NA Policy Number: NA Group Number: NA
--- OUTSIDE RECORDS SUMMARY | 2024-03-02 08:01 | XMS_ITS | Continuity of Care Document ---
Author Organization [facility] Zhou lt Address [address] [place] [address]- Care Team Providers Care Shipyard Laborer Name Role Phone Chrissie MCDONNELL, Trace Coffman Primary Care Physician [phone] [place] [facility] [place] 02/01/24 [facility] Adult [address] [place] [address]- Attending Physician: Not on Staff, Attending MD Encounter Type: Pre Office Visit Allergies, Adverse Reactions, Alerts Substance [...] virus vaccine, inactivated 03/10/10 Eusebio rded SARS-CoV-2(COVID-19)mRNA-LNP vac([id number]) 11/12/23 Recorded RSV vaccine preF3, recombinant 12/18/22 Recorded SARS-CoV-2 (COVID-19) mRNA-1273 vaccine 12/06/22 R ecorded SARS-CoV-2 mRNA (zcxgqmt-kzlp-amygp) vax 7 12/01/21 Recorded SARS-CoV-2 mRNA (ipbsmlf-inwi-sguew) vax 05/19/21 Recorded Influenza Virus Vaccine (oldterm) [...] Comment: [[facility]/10/2018[facility]: [[facility]07[facility]2017[facility] 4Result Comment: [...] 10:35:00 AM EDT, Route to Pharmacy Electronically, [facility]/pharmacy #[id number], 160, cm, 07/25/23 10:07:00 EDT, [...] 3 Refills, Maintenance, 07/25/23 10:34:00 AM EDT, [facility]/pharmacy #[id number], 160, cm, 07/25/23 10:07:00 EDT, Height Start Date: 07/25/23 Status: Ordered Quantity: 90.0 Unit: capsule Repeat number: 4 fluticasone 50 mcg/inh nasal spray 1 sprays = 50 mcg, Nares, Both, 2 times a day, # 16 Gm, 11 Refills, Maintenance, 07/25/23 10:41:00 AM EDT, [place], [facility]/pharmacy #[id number], Partial fill upon patient request if the prescription is for a schedule II opioid drug., 1 sprays Nares, Both 2 times a day, 160, cm, 07/25/23 10:07:00 EDT, Height Start Date: 07/25/23 Status: Ordered Quantity: 16.0 Unit: g Repeat number: 12 hydroCHLOROthiazide 12.5 mg oral capsule 1 capsule, By Mouth, Daily, # 90 capsule, 1 Refills, Maintenance, 07/25/23 10:34:00 AM EDT, [facility]/pharmacy #[id number], 160, cm, 07/25/23 10:07:00 EDT, [...] PM EDT, Aerosol, Route to Pharmacy Electronically, [id number], [facility]/pharmacy #[id number], 157.48, cm, 09/29/19 16:05:00 EDT, [...] 5 Refills, Maintenance, 07/25/23 10:34:00 AM EDT, [facility]/pharmacy #[id number], 160, cm, 07/25/23 10:07:00 EDT, Height Start Date: 07/25/23 Status: Ordered Quantity: 18.0 Unit: tablet Repeat number: 6 Symbicort 160mcg/4.5mcg Inhaler 2, puffs, Inhalation, 2 times a day, # 10.2 Gm, Refills 11, Tot. Refills 11, Maintenance, 01/15/24 8:35:00 AM EST, Aerosol, Route to Pharmacy Electronically, [id number], [facility]/pharmacy #[id number], 160, cm, 01/08/24 9:08:00 EDT, Height Start Date: 01/15/24 Status: Ordered Quantity: 10.2 Unit: g Repeat number: 12 valsartan 80 mg oral tablet 1, tablet, By Mouth, Daily, # 90 tablet, Refills 1, Tot. Refills 1, Maintenance, 07/25/23 10:35:00 AM EDT, Route to Pharmacy Electronically, [facility]/pharmacy #[id number], 160, cm, 07/25/23 10:07:00 EDT, [...] Active Thyroid nodule 8 Confirmed Active 1Colonoscopy 2014 normal, repeat 2019 2Colonoscopy 2007 positive polyp, requiring transanal surgery, repeat colo scheduled for November 2013. [id number]; repeat [address] Narayan yearly [...] - Primary Care Member Role: PCP Address: [address] [place] [address]- Telecom: Care Team Related Persons Name: JONG FARR Name: GRACE CARRIZALES Insurance Providers Guarantor name: PARISH FARR Health Plan Information #: 1 P[facility] Member Number: [id number] Policy Number: NA Group Number: [id number] Health Plan Information #: 2 Payer: [facility] Member Number: [id number] Policy Number: NA Group Number: NA
--- OUTSIDE RECORDS SUMMARY | 2024-03-02 08:01 | XMS_ITS | Continuity of Care Document ---
Author Organization [facility] Zhou lt Address [address] [place] [address]- Care Team Providers Care Ship Scraper Name Role Phone Chrissie MCDONNELL, Trace Coffman Primary Care Physician [phone] [place] [facility] [place] 02/02/24 [facility] Adult [address] [place] [address]- Encounter Type: Triage Allergies, Adverse Reactions, Alerts [...] virus vaccine, inactivated 03/10/10 Eusebio rded SARS-CoV-2(COVID-19)mRNA-LNP vac([id number]) 11/12/23 Recorded RSV vaccine preF3, recombinant 12/18/22 Recorded SARS-CoV-2 (COVID-19) mRNA-1273 vaccine 12/06/22 R ecorded SARS-CoV-2 mRNA (ygkiixr-olhm-furdj) vax 7 12/01/21 Recorded SARS-CoV-2 mRNA (gzvfhkn-dafd-cgdov) vax 05/19/21 Recorded Influenza Virus Vaccine (oldterm) [...] 1[facility] Comment: [facility]2018[facility] 2Result Comment: [01/07/2017] [facility] high dose 3[facility] 4Result Comment: [12/15/2015] [facility] 6Result Comment: [12/15/2014] [facility] 7Result Comment: Moderna Covid Bivalent Booster [facility] 8Result Comment: Flu shot [facility] 9Result Comment: [01/29/2014] [facility] Medications albuterol 0.083% inhalation solution 3 [...] 10:35:00 AM EDT, Route to Pharmacy Electronically, [facility]/pharmacy #[id number], 160, cm, 07/25/23 10:07:00 EDT, [...] 3 Refills, Maintenance, 07/25/23 10:34:00 AM EDT, [facility]/pharmacy #[id number], 160, cm, 07/25/23 10:07:00 EDT, Height Start Date: 07/25/23 Status: Ordered Quantity: 90.0 Unit: capsule Repeat number: 4 fluticasone 50 mcg/inh nasal spray 1 sprays = 50 mcg, Nares, Both, 2 times a day, # 16 Gm, 11 Refills, Maintenance, 07/25/23 10:41:00 AM EDT, [place], [facility]/pharmacy #[id number], Partial fill upon patient request if the prescription is for a schedule II opioid drug., 1 sprays Nares, Both 2 times a day, 160, cm, 07/25/23 10:07:00 EDT, Height Start Date: 07/25/23 Status: Ordered Quantity: 16.0 Unit: g Repeat number: 12 hydroCHLOROthiazide 12.5 mg oral capsule 1 capsule, By Mouth, Daily, # 90 capsule, 1 Refills, Maintenance, 07/25/23 10:34:00 AM EDT, [facility]/pharmacy #[id number], 160, cm, 07/25/23 10:07:00 EDT, [...] PM EDT, Aerosol, Route to Pharmacy Electronically, [id number], [facility]/pharmacy #[id number], 157.48, cm, 09/29/19 16:05:00 EDT, [...] 5 Refills, Maintenance, 07/25/23 10:34:00 AM EDT, [facility]/pharmacy #[id number], 160, cm, 07/25/23 10:07:00 EDT, Height Start Date: 07/25/23 Status: Ordered Quantity: 18.0 Unit: tablet Repeat number: 6 Symbicort 160mcg/4.5mcg Inhaler 2, puffs, Inhalation, 2 times a day, # 10.2 Gm, Refills 11, Tot. Refills 11, Maintenance, 01/15/24 8:35:00 AM EST, Aerosol, Route to Pharmacy Electronically, [id number], [facility]/pharmacy #[id number], 160, cm, 01/08/24 9:08:00 EDT, Height Start Date: 01/15/24 Status: Ordered Quantity: 10.2 Unit: g Repeat number: 12 valsartan 80 mg oral tablet 1, tablet, By Mouth, Daily, # 90 tablet, Refills 1, Tot. Refills 1, Maintenance, 07/25/23 10:35:00 AM EDT, Route to Pharmacy Electronically, [facility]/pharmacy #[id number], 160, cm, 07/25/23 10:07:00 EDT, [...] surgery, repeat colo scheduled for November 2013. [id number]; repeat [address] Narayan yearly [...] Team Personnel Name: Trace Dickens MD Position: [facility] Physician - Primary Care Member Role: PCP Address: [address] [place] [address]- Telecom: Care Team Related Persons Name: JONG FARR Name: GRACE CARRIZALES Insurance Providers Guarantor name: PARISH BETTEKYLE Health Plan Information #: 1 Payer: [facility] ADVANTAGE RE[employer] Member Number: NA Policy Number: NA Group Number: NA
--- OUTSIDE RECORDS SUMMARY | 2024-03-02 08:01 | XMS_ITS | Continuity of Care Document ---
Author Organization [facility] Zhou lt Address [address] [place] [address]- Care Team Providers Care Counter Weigher Name Role Phone Chrissie MCDONNELL, Trace Coffman Primary Care Physician [phone] Encounter [facility] [place] Date(s): 01/21/24 - 02/20/24 [facility] Adult [address] [place] [address]- Encounter Type: Triage Allergies, Adverse Reactions, Alerts [...] virus vaccine, inactivated 03/10/10 Eusebio rded SARS-CoV-2(COVID-19)mRNA-LNP vac(fpr993) 11/12/23 Recorded RSV vaccine preF3, recombinant 12/18/22 Recorded SARS-CoV-2 (COVID-19) mRNA-1273 vaccine 12/06/22 R ecorded SARS-CoV-2 mRNA (xnaalok-njov-mnaba) vax 7 12/01/21 Recorded SARS-CoV-2 mRNA (awmebsh-orog-qldpo) vax 05/19/21 Recorded Influenza Virus Vaccine (oldterm) [...] Comment: [[facility]/10/2018] [facility] Comment: [01/07/2017] [facility] high dose 3Location History: [facility] 4Result Comment: [12/15/2015] [facility] DO[facility] 6Result Comment: [12/15/2014] [facility] 7Result Comment: Moderna Covid Bivalent Booster [facility] Pharmacy 8Result Comment: Flu shot high dose [facility] Pharm[facility] 9Result Comment: [01/29/2014] [facility] Medications albuterol 0.083% inhalation solution 3 mL [...] AM EDT, Route to Pharmacy Electronically, [id number], 160, cm, 07/25/23 10:07:00 EDT, Height Start [...] 3 Refills, Maintenance, 07/25/23 10:34:00 AM EDT, [facility]/pharmacy #0693, 160, cm, 07/25/23 10:07:00 EDT, Height Start Date: 07/25/23 Status: Ordered Quantity: 90.0 Unit: capsule Repeat number: 4 fluticasone 50 mcg/inh nasal spray 1 sprays = 50 mcg, Nares, Both, 2 times a day, # 16 Gm, 11 Refills, Maintenance, 07/25/23 10:41:00 AM EDT, [place], [facility]/pharmacy #0693, Partial fill upon patient request if the prescription is for a schedule II opioid drug., 1 sprays Nares, Both 2 times a day, 160, cm, 07/25/23 10:07:00 EDT, Height Start Date: 07/25/23 Status: Ordered Quantity: 16.0 Unit: g Repeat number: 12 hydroCHLOROthiazide 12.5 mg oral capsule 1 capsule, By Mouth, Daily, # 90 capsule, 1 Refills, Maintenance, 07/25/23 10:34:00 AM EDT, [facility]/pharmacy #0693, 160, cm, 07/25/23 10:07:00 EDT, Height [...] PM EDT, Aerosol, Route to Pharmacy Electronically, [id number], [facility]/pharmacy #0693, 157.48, cm, 09/29/19 16:05:00 EDT, Height [...] 5 Refills, Maintenance, 07/25/23 10:34:00 AM EDT, [facility]/pharmacy #0693, 160, cm, 07/25/23 10:07:00 EDT, Height Start Date: 07/25/23 Status: Ordered Quantity: 18.0 Unit: tablet Repeat number: 6 Symbicort 160mcg/4.5mcg Inhaler 2, puffs, Inhalation, 2 times a day, # 10.2 Gm, Refills 11, Tot. Refills 11, Maintenance, 01/15/24 8:35:00 AM EST, Aerosol, Route to Pharmacy Electronically, [id number], [facility]/pharmacy #0693, 160, cm, 01/08/24 9:08:00 EDT, Height Start Date: 01/15/24 Status: Ordered Quantity: 10.2 Unit: g Repeat number: 12 valsartan 80 mg oral tablet 1, tablet, By Mouth, Daily, # 90 tablet, Refills 1, Tot. Refills 1, Maintenance, 07/25/23 10:35:00 AM EDT, Route to Pharmacy Electronically, [facility]/pharmacy #[id number], 160, cm, 07/25/23 10:07:00 EDT, Height [...] surgery, repeat colo scheduled for November 2013. [id number]; repeat [address] Narayan yearly [...] - Primary Care Member Role: PCP Address: [address] [place] [address]- Telecom: Care Team Related Persons Name: JONG FARR Name: GRACE CARRIZALES Insurance Providers Guarantor name: PARISH FARR Health Plan Information #: 1 Payer: [facility] ADVANT[facility] RE[employer] Member Number: NA Policy Number: NA Group Number: NA
--- OUTSIDE RECORDS SUMMARY | 2024-03-02 08:01 | XMS_ITS | Continuity of Care Document ---
Author Organization [facility] Zhou lt Address [address] [place] [address]- Care Team Providers Care Coat Examiner Name Role Phone Chrissie MCDONNELL, Trace Coffman Primary Care Physician En[place] [facility] [place] Date(s): 12/26/23 - 02/08/24 [facility] Adult [address] [place] [address]- Attending Physician: Not on Staff, Attending MD [...] virus vaccine, inactivated 03/10/10 Eusebio rded SARS-CoV-2(COVID-19)mRNA-LNP vac([id number]) 11/12/23 Recorded RSV vaccine preF3, recombinant 12/18/22 Recorded SARS-CoV-2 (COVID-19) mRNA-1273 vaccine 12/06/22 R ecorded SARS-CoV-2 mRNA (ebwpnmc-rmby-rsnmh) vax 7 12/01/21 Recorded SARS-CoV-2 mRNA (lmqgkqq-kjzx-klxqu) vax 05/19/21 Recorded Influenza Virus Vaccine (oldterm) [...] Comment: [[facility]10/2018[facility] [[facility]07[facility]2017[facility] jamshid high dose 3[facility] 4Result [...] 10:35:00 AM EDT, Route to Pharmacy Electronically, [facility]/pharmacy #[id number], 160, cm, 07/25/23 10:07:00 EDT, [...] 3 Refills, Maintenance, 07/25/23 10:34:00 AM EDT, [facility]/pharmacy #[id number], 160, cm, 07/25/23 10:07:00 EDT, Height Start Date: 07/25/23 Status: Ordered Quantity: 90.0 Unit: capsule Repeat number: 4 fluticasone 50 mcg/inh nasal spray 1 sprays = 50 mcg, Nares, Both, 2 times a day, # 16 Gm, 11 Refills, Maintenance, 07/25/23 10:41:00 AM EDT, [place], [facility]/pharmacy #[id number], Partial fill upon patient request if the prescription is for a schedule II opioid drug., 1 sprays Nares, Both 2 times a day, 160, cm, 07/25/23 10:07:00 EDT, Height Start Date: 07/25/23 Status: Ordered Quantity: 16.0 Unit: g Repeat number: 12 hydroCHLOROthiazide 12.5 mg oral capsule 1 capsule, By Mouth, Daily, # 90 capsule, 1 Refills, Maintenance, 07/25/23 10:34:00 AM EDT, [facility]/pharmacy #[id number], 160, cm, 07/25/23 10:07:00 EDT, [...] PM EDT, Aeros[place], Route to Pharmacy Electronically, [id number], [facility]/pharmacy #[id number], 157.48, cm, 09/29/19 16:05:00 EDT, [...] 5 Refills, Maintenance, 07/25/23 10:34:00 AM EDT, [facility]/pharmacy #0693, 160, cm, 07/25/23 10:07:00 EDT, Height Start Date: 07/25/23 Status: Ordered Quantity: 18.0 Unit: tablet Repeat number: 6 Symbicort 160mcg/4.5mcg Inhaler 2, puffs, Inhalation, 2 times a day, # 10.2 Gm, Refills 11, Tot. Refills 11, Maintenance, 01/15/24 8:35:00 AM EST, Aeros[place], Route to Pharmacy Electronically, [id number], [facility]/pharmacy #[id number], 160, cm, 01/08/24 9:08:00 EDT, Height Start Date: 01/15/24 Status: Ordered Quantity: 10.2 Unit: g Repeat number: 12 valsartan 80 mg oral tablet 1, tablet, By Mouth, Daily, # 90 tablet, Refills 1, Tot. Refills 1, Maintenance, 07/25/23 10:35:00 AM EDT, Route to Pharmacy Electronically, [facility]/pharmacy #[id number], 160, cm, 07/25/23 10:07:00 EDT, [...] surgery, repeat colo scheduled for November 2013. [id number]; repeat [address] Narayan yearly [...] - Primary Care Member Role: PCP Address: [address] [place] [address]- Telecom: Care Team Related Persons Name: JONG FARR Name: GRACE CARRIZALES Insurance Providers Guarantor name: PARISH FARR Health Plan Information #: 1 Payer: [facility] [employer] Member Number: [id number] Policy Number: NA Group Number: [id number] Health Plan Information #: 2 Payer: [facility] Member Number: [id number] Policy Number: NA Group Number: NA
--- OUTSIDE RECORDS SUMMARY | 2024-03-02 08:01 | XMS_ITS | Continuity of Care Document ---
Author Organization [facility] Zhou lt Address [address] [place] [address]- Care Team Providers Care Mine Engineering Manager Name Role Phone Chrissie MCDONNELL, Trace Coffman Primary Care Physician Encounter [facility] [place] Date(s): 01/03/24 - 02/02/24 [facility] Adult [address] [place] [address]- Encounter Type: Triage Allergies, Adverse Reactions, Alerts [...] virus vaccine, inactivated 03/10/10 Eusebio rded SARS-CoV-2(COVID-19)mRNA-LNP vac([id number]) 11/12/23 Recorded RSV vaccine preF3, recombinant 12/18/22 Recorded SARS-CoV-2 (COVID-19) mRNA-1273 vaccine 12/06/22 R ecorded SARS-CoV-2 mRNA (qvgcems-mjbl-sgoto) vax 7 12/01/21 Recorded SARS-CoV-2 mRNA (ioxsywh-hnvh-ampof) vax 05/19/21 Recorded Influenza Virus Vaccine (oldterm) [...] 1Result Comment: [[facility]/2018[facility]: [01/07/2017] [facility] high dose 3[facility] 4Result Comment: [12/15/2015] [facility] 5[facility] 6Result Comment: [12/15/2014] [facility] 7Result Comment: Moderna Covid Bivalent Booster [facility] 8Result Comment: Flu shot [facility] 9Result Comment: [01/29/2014] [facility] Medications albuterol 0.083% inhalation solution 3 mL [...] 10:35:00 AM EDT, Route to Pharmacy Electronically, [facility]/pharmacy #[id number], 160, cm, 07/25/23 10:07:00 EDT, Height [...] 3 Refills, Maintenance, 07/25/23 10:34:00 AM EDT, [facility]/pharmacy #0693, 160, cm, 07/25/23 10:07:00 EDT, Height Start Date: 07/25/23 Status: Ordered Quantity: 90.0 Unit: capsule Repeat number: 4 fluticasone 50 mcg/inh nasal spray 1 sprays = 50 mcg, Nares, Both, 2 times a day, # 16 Gm, 11 Refills, Maintenance, 07/25/23 10:41:00 AM EDT, [place], [facility]/pharmacy #0693, Partial fill upon patient request if the prescription is for a schedule II opioid drug., 1 sprays Nares, Both 2 times a day, 160, cm, 07/25/23 10:07:00 EDT, Height Start Date: 07/25/23 Status: Ordered Quantity: 16.0 Unit: g Repeat number: 12 hydroCHLOROthiazide 12.5 mg oral capsule 1 capsule, By Mouth, Daily, # 90 capsule, 1 Refills, Maintenance, 07/25/23 10:34:00 AM EDT, [facility]/pharmacy #0693, 160, cm, 07/25/23 10:07:00 EDT, Height [...] PM EDT, Aerosol, Route to Pharmacy Electronically, [id number], [facility]/pharmacy #0693, 157.48, cm, 09/29/19 16:05:00 EDT, Height [...] 5 Refills, Maintenance, 07/25/23 10:34:00 AM EDT, [facility]/pharmacy #0693, 160, cm, 07/25/23 10:07:00 EDT, Height Start Date: 07/25/23 Status: Ordered Quantity: 18.0 Unit: tablet Repeat number: 6 Symbicort 160mcg/4.5mcg Inhaler 2, puffs, Inhalation, 2 times a day, # 10.2 Gm, Refills 11, Tot. Refills 11, Maintenance, 01/15/24 8:35:00 AM EST, Aeros[place], Route to Pharmacy Electronically, [id number], [facility]/pharmacy #0693, 160, cm, 01/08/24 9:08:00 EDT, Height Start Date: 01/15/24 Status: Ordered Quantity: 10.2 Unit: g Repeat number: 12 valsartan 80 mg oral tablet 1, tablet, By Mouth, Daily, # 90 tablet, Refills 1, Tot. Refills 1, Maintenance, 07/25/23 10:35:00 AM EDT, Route to Pharmacy Electronically, [facility]/pharmacy #[id number], 160, cm, 07/25/23 10:07:00 EDT, Height [...] surgery, repeat colo scheduled for November 2013. [id number]; repeat [address] Narayan yearly [...] Team Personnel Name: Trace Dickens MD Position: [facility] Physician - Primary Care Member Role: PCP Address: [address] [place] [address]- Telecom: Care Team Related Persons Name: JONG FARR Name: GRACE CARRIZALES Insurance Providers Guarantor name: [employer] BETTEKYLE Health Plan Information #: 1 Payer: [facility] [employer] [employer] Member Number: NA Policy Number: NA Group Number: NA
--- OUTSIDE RECORDS SUMMARY | 2024-03-02 08:01 | XMS_ITS | Continuity of Care Document ---
Author Organization [facility] Zhou lt Address [address] [place] [address]- Care Team Providers Care Resolution Specialist Name Role Phone Chrissie MCDONNELL, Trace Coffman Primary Care Physician [place] [facility] [place](s): 01/20/24 - 02/19/24 [facility] Adult [address] [place] [address]- Encounter Type: Triage Allergies, Adverse Reactions, Alerts [...] virus vaccine, inactivated 03/10/10 Eusebio rded SARS-CoV-2(COVID-19)mRNA-LNP vac([id number]) 11/12/23 Recorded RSV vaccine preF3, recombinant 12/18/22 Recorded SARS-CoV-2 (COVID-19) mRNA-1273 vaccine 12/06/22 R ecorded SARS-CoV-2 mRNA (ttarfea-bxlc-gbldw) vax 7 12/01/21 Recorded SARS-CoV-2 mRNA (tuxsnpq-dbwy-jqoiw) vax 05/19/21 Recorded Influenza Virus Vaccine (oldterm) [...] [facility] Comment: [facility]10/2018] [facility] 2Result Comment: [01/07/2017] [facility] high dose 3Location History: [facility] 4Result Comment: [12/15/2015] [facility] 6Result Comment: [12/15/2014] [facility] 7Result Comment: Moderna Covid Bivalent Booster [facility] 8Result Comment: Flu shot high dose [facility] 9Result Comment: [01/29/2014] [facility] Medications albuterol 0.083% inhalation solution 3 mL [...] AM EDT, Route to [facility] Electronically, [id number], 160, cm, 07/25/23 10:07:00 EDT, Height Start [...] 3 Refills, Maintenance, 07/25/23 10:34:00 AM EDT, [facility]/pharmacy #[id number], 160, cm, 07/25/23 10:07:00 EDT, Height Start Date: 07/25/23 Status: Ordered Quantity: 90.0 Unit: capsule Repeat number: 4 fluticasone 50 mcg/inh nasal spray 1 sprays = 50 mcg, Nares, Both, 2 times a day, # 16 Gm, 11 Refills, Maintenance, 07/25/23 10:41:00 AM EDT, [place], [facility]/pharmacy #[id number], Partial fill upon patient [...] 1 Refills, Maintenance, 07/25/23 10:34:00 AM EDT, [facility]/pharmacy #[id number], 160, cm, 07/25/23 10:07:00 [...] PM EDT, Aerosol, Route to Pharmacy Electronically, [id number], [facility]/pharmacy #[id number], 157.48, cm, 09/29/19 16:05:00 [...] 5 Refills, Maintenance, 07/25/23 10:34:00 AM EDT, [facility]/pharmacy #[id number], 160, cm, 07/25/23 10:07:00 EDT, Height Start Date: 07/25/23 Status: Ordered Quantity: 18.0 Unit: tablet Repeat number: 6 Symbicort 160mcg/4.5mcg Inhaler 2, puffs, Inhalation, 2 times a day, # 10.2 Gm, Refills 11, Tot. Refills 11, Maintenance, 01/15/24 8:35:00 AM EST, Aerosol, Route to Pharmacy Electronically, [id number], [facility]/pharmacy #[id number], 160, cm, 01/08/24 9:08:00 EDT, Height Start Date: 01/15/24 Status: Ordered Quantity: 10.2 Unit: g Repeat number: 12 valsartan 80 mg oral tablet 1, tablet, By Mouth, Daily, # 90 tablet, Refills 1, Tot. Refills 1, Maintenance, 07/25/23 10:35:00 AM EDT, Route to Pharmacy Electronically, [facility]/pharmacy #[id number], 160, cm, 07/25/23 10:07:00 [...] surgery, repeat colo scheduled for November 2013. [id number]; repeat [address] Narayan yearly [...] - Primary Care Member Role: PCP Address: [address] [place] [phone]- Telecom: Care Team Related Persons Name: JONG FARR Name: GRACE CARRIZALES Insurance Providers Guarantor name: PARISH FARR Health Plan Information #: 1 Payer: [facility] [employer] Member Number: NA Policy Number: NA Group Number: NA
--- OUTSIDE RECORDS SUMMARY | 2024-03-02 08:01 | XMS_ITS | Continuity of Care Document ---
Author Organization [facility] Zhou lt Address [address] [place] [address]- Care Team Providers Care Vocational Services Specialist Name Role Phone Chrissie MCDONNELL, Trace Coffman Primary Care Physician [place] [facility] [place] Date(s): 01/15/24 - 02/14/24 [facility] Adult [address] [place] [address]- Encounter Type: Triage Allergies, Adverse Reactions, Alerts [...] virus vaccine, inactivated 03/10/10 Eusebio rded SARS-CoV-2(COVID-19)mRNA-LNP vac([id number]) 11/12/23 Recorded RSV vaccine preF3, recombinant 12/18/22 Recorded SARS-CoV-2 (COVID-19) mRNA-1273 vaccine 12/06/22 R ecorded SARS-CoV-2 mRNA (gscrkfl-dbxh-tziiy) vax 7 12/01/21 Recorded SARS-CoV-2 mRNA (mwvecpc-wtma-njbav) vax 05/19/21 Recorded Influenza Virus Vaccine (oldterm) [...] [facility] Comment: [facility]2018[facility] 2Result Comment: [01/07/2017] [facility] high dose 3Location History: [facility] 4Result Comment: [12/15/2015] [facility] 6Result Comment: [12/15/2014] [facility] 7Result Comment: Moderna Covid Bivalent Booster [facility] Pharmacy 8Result Comment: Flu shot high dose [facility] Pharm[facility] 9Result Comment: [01/29/2014] [facility] Medications albuterol 0.083% inhalation solution [...] AM EDT, Route to Pharmacy Electronically, [id number], 160, cm, 07/25/23 10:07:00 EDT, Height Start [...] 3 Refills, Maintenance, 07/25/23 10:34:00 AM EDT, [facility]/pharmacy #[id number], 160, cm, 07/25/23 10:07:00 EDT, Height Start Date: 07/25/23 Status: Ordered Quantity: 90.0 Unit: capsule Repeat number: 4 fluticasone 50 mcg/inh nasal spray 1 sprays = 50 mcg, Nares, Both, 2 times a day, # 16 Gm, 11 Refills, Maintenance, 07/25/23 10:41:00 AM EDT, [place], [facility]/pharmacy #[id number], Partial fill upon patient [...] 1 Refills, Maintenance, 07/25/23 10:34:00 AM EDT, [facility]/pharmacy #[id number], 160, cm, 07/25/23 10:07:00 [...] PM EDT, Aerosol, Route to Pharmacy Electronically, [id number], [facility]/pharmacy #[id number], 157.48, cm, 09/29/19 16:05:00 [...] 5 Refills, Maintenance, 07/25/23 10:34:00 AM EDT, [facility]/pharmacy #[id number], 160, cm, 07/25/23 10:07:00 EDT, Height Start Date: 07/25/23 Status: Ordered Quantity: 18.0 Unit: tablet Repeat number: 6 Symbicort 160mcg/4.5mcg Inhaler 2, puffs, Inhalation, 2 times a day, # 10.2 Gm, Refills 11, Tot. Refills 11, Maintenance, 01/15/24 8:35:00 AM EST, Aerosol, Route to Pharmacy Electronically, [id number], [facility]/pharmacy #[id number], 160, cm, 01/08/24 9:08:00 EDT, Height Start Date: 01/15/24 Status: Ordered Quantity: 10.2 Unit: g Repeat number: 12 valsartan 80 mg oral tablet 1, tablet, By Mouth, Daily, # 90 tablet, Refills 1, Tot. Refills 1, Maintenance, 07/25/23 10:35:00 AM EDT, Route to Pharmacy Electronically, [facility]/pharmacy #[id number], 160, cm, 07/25/23 10:07:00 [...] surgery, repeat colo scheduled for November 2013. [id number]; repeat [address] Narayan yearly [...] - Primary Care Member Role: PCP Address: [address] [place] [phone]- Telecom: Care Team Related Persons Name: JONG FARR Name: GRACE CARRIZALES Insurance Providers Guarantor name: PARISH FARR Health Plan Information #: 1 Payer: [facility] [employer] Member Number: NA Policy Number: NA Group Number: NA
--- OUTSIDE RECORDS SUMMARY | 2024-03-02 08:01 | XMS_ITS | Continuity of Care Document ---
Author Organization [facility] Zhou lt Address [address] [place] [address]- Care Team Providers Care Agile Developer Name Role Phone Chrissie MCDONNELL, Trace Coffman Primary Care Physician Encounter [facility] [place] Date(s): 01/01/24 - 01/31/24 [facility] Adult [address] [place] [address]- Encounter Type: Triage Allergies, Adverse Reactions, Alerts [...] virus vaccine, inactivated 03/10/10 Eusebio rded SARS-CoV-2(COVID-19)mRNA-LNP vac([id number]) 11/12/23 Recorded RSV vaccine preF3, recombinant 12/18/22 Recorded SARS-CoV-2 (COVID-19) mRNA-1273 vaccine 12/06/22 R ecorded SARS-CoV-2 mRNA (uogoncd-mfxz-ozfhi) vax 7 12/01/21 Recorded SARS-CoV-2 mRNA (ptfdwpm-aeyq-iuncu) vax 05/19/21 Recorded Influenza Virus Vaccine (oldterm) [...] [facility] Comment: [facility]/2018[facility] 2Result Comment: [01/07/2017] [facility] high dose 3[facility] History[facility] 4Result Comment: [12/15/2015] [facility] 5[facility] 6Result Comment: [12/15/2014] [facility] 7Result Comment: Moderna Covid Bivalent Booster [facility] 8Result Comment: Flu shot [facility] dose [facility] 9Result Comment: [01/29/2014] [facility] Medications albuterol 0.083% inhalation solution 3 [...] 10:35:00 AM EDT, Route to Pharmacy Electronically, [facility]/pharmacy #[id number], 160, cm, 07/25/23 10:07:00 EDT, [...] 3 Refills, Maintenance, 07/25/23 10:34:00 AM EDT, [facility]/pharmacy #[id number], 160, cm, 07/25/23 10:07:00 EDT, Height Start Date: 07/25/23 Status: Ordered Quantity: 90.0 Unit: capsule Repeat number: 4 fluticasone 50 mcg/inh nasal spray 1 sprays = 50 mcg, Nares, Both, 2 times a day, # 16 Gm, 11 Refills, Maintenance, 07/25/23 10:41:00 AM EDT, [place], [facility]/pharmacy #[id number], Partial fill upon patient request if the prescription is for a schedule II opioid drug., 1 sprays Nares, Both 2 times a day, 160, cm, 07/25/23 10:07:00 EDT, Height Start Date: 07/25/23 Status: Ordered Quantity: 16.0 Unit: g Repeat number: 12 hydroCHLOROthiazide 12.5 mg oral capsule 1 capsule, By Mouth, Daily, # 90 capsule, 1 Refills, Maintenance, 07/25/23 10:34:00 AM EDT, [facility]/pharmacy #[id number], 160, cm, 07/25/23 10:07:00 EDT, [...] PM EDT, Aerosol, Route to Pharmacy Electronically, [id number], [facility]/pharmacy #[id number], 157.48, cm, 09/29/19 16:05:00 EDT, [...] 5 Refills, Maintenance, 07/25/23 10:34:00 AM EDT, [facility]/pharmacy #[id number], 160, cm, 07/25/23 10:07:00 EDT, Height Start Date: 07/25/23 Status: Ordered Quantity: 18.0 Unit: tablet Repeat number: 6 Symbicort 160mcg/4.5mcg Inhaler 2, puffs, Inhalation, 2 times a day, # 10.2 Gm, Refills 11, Tot. Refills 11, Maintenance, 01/15/24 8:35:00 AM EST, Aerosol, Route to Pharmacy Electronically, [id number], [facility]/pharmacy #[id number], 160, cm, 01/08/24 9:08:00 EDT, Height Start Date: 01/15/24 Status: Ordered Quantity: 10.2 Unit: g Repeat number: 12 valsartan 80 mg oral tablet 1, tablet, By Mouth, Daily, # 90 tablet, Refills 1, Tot. Refills 1, Maintenance, 07/25/23 10:35:00 AM EDT, Route to Pharmacy Electronically, [facility]/pharmacy #[id number], 160, cm, 07/25/23 10:07:00 EDT, [...] surgery, repeat colo scheduled for November 2013. [id number]; repeat [address] Narayan yearly [...] Team Personnel Name: Trace Dickens MD Position: [facility] Physician - Primary Care Member Role: PCP Address: [address] [place] [phone]- Telecom: Care Team Related Persons Name: JONG FARR Name: GRACE CARRIZALES Insurance Providers Guarantor name: PARISH [employer]LE Health Plan Information #: 1 Payer: [facility] [employer] Member Number: NA Policy Number: NA Group Number: NA
[2024-03-02 08:11] VITALS: BP 198/87; PULSE 67; RESP 16; TEMP 36.1; O2SAT 95; BMI 22.9
--- NOTE | 2024-03-02 09:49 | ED_ITS ---
HPI - Extremity Injury (Lower) General Chief Complaint: Extremity Injury, Lower Stated Complaint: R foot pain Time Seen by Provider: 03/02/24 09:02 Source: patient and RN notes reviewed Mode of arrival: ambulatory Limitations: no limitations History of Present Illness ED Provider: Monica Brown PA-C HPI Narrative: This is a 78-year-old female, with a history of hypertension, [facility] of right foot pain x1 week. Patient reports that a heavy wooden shut her fell directly onto her right foot. She states that she had pain however states that over the last several days she has had increased swelling, bruising, and pain to her right foot. She has been ambulating however reports that this is very painful. Denies history of injury to her right foot in the past. She has been taking ibuprofen which has provided her with moderate relief. Or this complaint: foot injury Onset (ago): week(s) Type of Injury: blunt Place: home Severity: moderate Relieving factors: NSAID Exacerbating factors: weight bearing, movement and palpation Context: direct blow Associated symptoms: swelling and able to partially bear weight Other symptoms: none Treatments prior to arrival: cold therapy Related Data Previous Rx's ?Medication ?Instructions ?Recorded doxycycline hyclate 100 mg tablet 100 mg PO BID 7 days #14 tabs 07/17/20 albuterol sulfate 90 mcg/actuation 2 puff inhalation Q4-6H PRN 01/02/24 aerosol inhaler shortness of breath or wheezing #6.7 grams benzonatate 100 mg capsule 100 mg PO TID PRN cough #14 caps 01/02/24 prednisone 20 mg tablet 40 mg (2 x 20 mg) PO DAILY 5 days 01/02/24 #10 tabs acetaminophen 500 mg tablet 500 mg PO Q6H PRN pain #30 tabs 03/02/24 (Tylenol Extra Strength) oxycodone 5 mg tablet 2.5 mg (1/2 x 5 mg) PO Q8H PRN 03/02/24 severe pain (scale score 7-10) #5 tabs Allergies Allergy/AdvReac Type Severity Reaction Status Date / Time NSAIDS (Non-Steroidal Allergy Intermediate DECREASE Verified 03/02/24 08:12 Anti-Inflamma PLATELETS [NSAIDS] meperidine [From Demerol] AdvReac Mild VOMITING Verified 03/02/24 08:12 nicotine [Nicoderm CQ] AdvReac Mild rash Verified 03/02/24 08:12 Review of Systems Review of Systems: Yes all other systems are reviewed and are negative Constitutional: Constitutional: Reports as per [facility] Past Medical History Medical History Hypertension Social History Social History Alcohol intake: never Advance Directives: No Advance Directives Information Provided: Yes Physical Exam Vital Signs: Vital Signs: Last Vital Signs Temp 96.9 F 03/02/24 08:11 Pulse 67 03/02/24 08:11 Resp 16 03/02/24 08:11 BP 198/87 H 03/02/24 08:11 Pulse Ox 95 03/02/24 08:11 O2 Del Method Room Air 03/02/24 08:11 BMI result Body Mass Index 22.9 Const: General: cooperative, comfortable and no acute distress Orientation/consciousness: patient oriented x3 Limitations: no limitations HEENT: Head: Yes normal to inspection, Yes normocephalic and Yes atraumatic Ears: hearing grossly normal bilaterally General nose exam: Normal external nose present Face and sinus: Yes normal facial exam Mouth: Normal oral and palatal mucosa present, oropharynx normal and moist mucous membranes Throat: Yes posterior oropharynx normal Eyes: General: appearance normal, both eyes and all related structures Eyelids: Yes eyelids normal Conjunctivae: conjunctivae normal Sclerae: sclerae normal Pupils: Equal, round and reactive pupils present EOM: EOMs intact bilaterally Neck: Neck: Yes normal visual inspection, Yes full ROM and Yes no lymphadenopathy Lymphatic: no lymphadenopathy noted Chest: Chest palpation & inspection: normal inspection of the chest Resp: Effort & Inspection: normal respiratory effort and able to speak in complete sentences Auscultation: clear to auscultation bilaterally, no crackles, no rales, no rhonchi and no wheezes Cardio: Rate: regular rate Rhythm: regular rhythm Heart sounds: S1 normal heart sound present and S2 normal heart sound present GI: Inspection: Yes normal to inspection Skin: General skin exam: no rashes or lesions noted Trauma: no lacerations or abrasions Wounds: no wounds Neuro: General: patient oriented x3 and moves all extremities Cranial nerves: Yes Equal, round and reactive pupils present Extrem: Other: Right foot with exquisite tenderness palpation along the 3rd and 4th metata rsals, no open wounds or lacerations. First tarsometatarsal are nontender. Able to move all toes without difficulty. Strong DP pulse. Ecchymosis seen throughout all tarsals. Lateral and medial malleolus are nontender, range of motion of the ankle is full and intact. No calf tenderness. General: Yes normal to inspection Right upper extremity: normal to inspection Left upper extremity: normal to inspection Right lower extremity: normal to inspection Left lower extremity: normal to inspection Medications Administered Discontinued Medications Generic Name Dose Route Start Last Admin Trade Name Freq PRN Reason Stop Dose Admin Oxycodone HCl 2.5 mg 03/02/24 09:58 03/02/24 10:09 Oxycodone Hcl Immed Release 5 Mg Tablet PO 03/02/24 09:59 2.5 mg ONCE ONE Administration Medical Decision Making Medical Decision Making MDM Narrative: This is a 78-year-old female, with a history of hypertension, who presents emergency department with complaints of 3rd and 4th metatarsal pain status post a Shutter falling directly onto her foot 1 week ago. On arrival, blood pressure elevated at 198/87, she has no chest pain or shortness for breath. No blurred vision, or severe headache. States that she took her hypertensive medication prior to arrival. She reports significant pain in her right foot. She has no calf tenderness. She has tenderness palpation along the 3rd and 4th metatarsals. X-ray revealing degenerative changes in the 1st metatarsophalangeal joint, which is nontender. She does have exquisite tenderness overlying the 3rd and 4th metatarsals, therefore will treat as a fracture. Patient reports significant pain, will treat with 2.5 mg of oxycodone. I discussed case with contract law specialist, Trace Paez PA-C who recommends postop shoe or boot and to follow-up with Orthopedics. Given strict return precautions. Differential Diagnosis Differential Diagnoses: The differential diagnosis associated with the presentation includes Fracture, contusion, sprain, strain Radiology Impression Discussion of test interpretation with radiology: I have reviewed the radiologist's reading. Radiologist Impression: XR/XR foot RT min 3V IMPRESSION: Degenerative changes in the foot as detailed above most notable in the first metatarsophalangeal joint. Additional findings as detailed above. Correlation with clinical exam recommended to determine further management. This study was presented today to March 02, 2024 for interpretation. Stat results provided at this time as requested by referring provider. Electronically signed by: Becca Castro MD 03/02/2024 08:49 AM [facility] Dictated By: Becca Catsro MD Independent Historian Clinical information obtained from an independent historian. History obtained from or confirmed by: Spouse Discharge Plan Discharge Clinical Impression: Metatarsal fracture, Foot fracture, right Patient Disposition: Home, Self-Care Instructions: Crutch Instructions (ED), Foot Fracture in Adults (ED) Additional Instructions: You were seen in the emergency department due to right foot pain. Your x-rays concerning for fractures in your 3rd and 4th metatarsal bones which are bones in your foot. Please wear postoperative shoe when your walking, use crutches to offset the weight onto your foot. Please take Tylenol as needed for pain. Oxycodone can be used for severe pain only. Please be advised that this can cause drowsiness, do not drink alcohol or drive while taking this medication. Only use for severe pain only as this medication can be addictive, cause adverse side effects and constipation. You cannot have this refilled from the ER. Follow-up with the contract law specialist, call today to make an appointment. Rest, ice, and elevate your foot to decrease inflammation. If any new or worsening symptoms occur including but not limited to worsening pain, swelling, fevers, chills, severe calf pain, chest pain, shortness of reginald th, please seek emergent care. Prescriptions: New acetaminophen [Tylenol Extra Strength] 500 mg tablet 500 mg PO Q6H PRN (Reason: pain) Qty: 30 0RF oxycodone 5 mg tablet 2.5 mg PO Q8H PRN (Reason: severe pain (scale score 7-10)) Qty: 5 0RF Rx Instructions: Partial Fill upon patient request. No Action doxycycline hyclate 100 mg tablet 100 mg PO BID 7 Days Qty: 14 0RF prednisone 20 mg tablet 40 mg PO DAILY 5 Days Qty: 10 0RF benzonatate 100 mg capsule 100 mg PO TID PRN (Reason: cough) Qty: 14 0RF albuterol sulfate 90 mcg/actuation HFA aerosol inhaler 2 puff inhalation Q4-6H PRN (Reason: shortness of breath or wheezing) Qty: 6.7 0RF [place]: [facility] [place] [facility] [Provider Group] Print Language: Mongolian
[2024-03-02] MEDS: oxyCODONE HCl Immed Release 5 MG TABLET 2.5 MG PO (10:09)
[2024-03-02 10:36] VITALS: BP 188/87; PULSE 58; RESP 18; TEMP 36.5; O2SAT 95
--- NOTE | 2024-03-02 10:37 | PC.NURSE ---
patient a&ox3, boot and crutches applied and teaching performed, pt medicated for pain per order. pt noted to be hypertensive- provider is aware and speaking with patient about her htn medications- pt states she did take her medications today. pt denying symptoms of htn.
[2024-03-02 10:49] VITALS: BP 188/87; PULSE 58; RESP 18; TEMP 36.5; O2SAT 95
== END 2024-03-02 10:50 | disposition home or self-care (01) ==
PROVIDERS: Emergency Provider Emergency Medicine; PCP Internal Medicine
DX: S92.301A Fracture of unspecified metatarsal bone(s), right foot, initial encounter for closed fracture (principal); W20.8XXA Other cause of strike by thrown, projected or falling object, initial encounter; Y93.9 Activity, unspecified; Y92.9 Unspecified place or not applicable; Y99.9 Unspecified external cause status
CPT/HCPCS: 73630; 99283; 99284

== ENCOUNTER 2024-03-16 10:04 | Outpatient (REF) | payer MEDICARE, SELFPAY ==
--- OUTSIDE RECORDS SUMMARY | 2024-03-16 11:00 | XMS_ITS | Continuity of Care Document ---
Author Organization [facility] Address [address] [place] [address]- Care Team Providers Care Armature Bander Name Role Phone Chrissie MCDONNELL, Trace Coffman Primary Care Physician Encounter [facility] [place] Date(s): 02/14/24 - 03/15/24 [facility] [address] [place] [address]- Attending Physician: Admtr, Stephan Admitting Physician: Admtr, [id number] Referring Physician: Admtr, [id number] Encounter Type: Triage Allergies, Adverse Reactions, Alerts [...] virus vaccine, inactivated 03/10/10 Eusebio rded SARS-CoV-2(COVID-19)mRNA-LNP vac([id number]) 11/12/23 Recorded RSV vaccine preF3, recombinant 12/18/22 Recorded SARS-CoV-2 (COVID-19) mRNA-1273 vaccine 12/06/22 R ecorded SARS-CoV-2 mRNA (zzneems-xrng-wlzkr) vax 7 12/01/21 Recorded SARS-CoV-2 mRNA (dsvlsrf-ulhl-kusqy) vax 05/19/21 Recorded Influenza Virus Vaccine (oldterm) [...] [facility]: [facility]2018[facility] [[facility]07[facility]2017[facility] high dose [facility] 4Result Comment: [12/15/2015] [facility] 5[facility] 6Result Comment: [12/15/2014] [facility] 7Result Comment: Moderna Covid Bivalent Booster [facility] 8Result Comment: Flu shot [facility] 9Result Comment: [01/29/2014] [facility] Medications albuterol 0.083% inhalation solution 3 mL = 2.5 mg, Inhalation, Every 6 hours, PRN asthma exacerbation, # 100 each, 11 Refills, Maintenance, 01/08/24 9:47:00 AM EDT, Solution, Partial fill upon patient request if the prescription is fora schedule II opioid drug. Start Date: 01/08/24 Status: Ordered Quantity: 100.0 Unit: each Repeat number: 12 amLODIPine 10 mg oral tablet 10 mg, 1, tablet, By Mouth, Daily, # 90 tablet, Refills 1, Tot. Refills 1, Maintenance, 03/09/24 9:40:00 AM EST, Route to Pharmacy Electronically, [facility]/pharmacy #[id number], Partial fill upon patient request if the prescription is for a schedule II opioid drug., 160, cm, 03/09/24 9:17:00 EST, Height Start Date: 03/09/24 Status: Ordered Quantity: 90.0 Unit: tablet Repeat number: 2 atenolol 25 mg oral tablet 1, tablet, By Mouth, 2 times a day, # 180 tablet, Refills 1, Tot. Refills 1, Maintenance, 02/21/24 1:32:00 PM EST, Route to Pharmacy Electronically, [facility]/pharmacy #[id number], 160, cm, 01/27/24 8:40:00 EST,Height Start [...] 3 Refills, Maintenance, 07/25/23 10:34:00 AM EDT, [facility]/pharmacy #[id number], 160, cm, 07/25/23 10:07:00 EDT, Height Start Date: 07/25/23 Status: Ordered Quantity: 90.0 Unit: capsule Repeat number: 4 fluticasone 50 mcg/inh nasal spray 1 sprays = 50 mcg, Nares, Both, 2 times a day, # 16 Gm, 11 Refills, Maintenance, 07/25/23 10:41:00 AM EDT, [place], [facility]/pharmacy #[id number], Partial fill upon patient request if the prescription is for a schedule II opioid drug., 1 sprays Nares, Both 2 times a day, 160, cm, 07/25/23 10:07:00 EDT, Height Start Date: 07/25/23 Status: Ordered Quantity: 16.0 Unit: g Repeat number: 12 magnesium oxide 400 mg oral tablet 1 tablet = 400 mg, By Mouth, Daily, for 30 days, # 30 tablet, 0 Refills, Acute 03/28/24 1:27:00 PM EST, 02/27/24 1:27:00 PM EST, Tablet, [facility]/pharmacy #[id number], 160, cm, 02/27/24 12:58:00 EST, Height Start Date: 02/27/24 Stop Date: 03/28/24 Status: Ordered Quantity: 30.0 Unit: tablet Repeat number: 1 Misc Rx See Instructions, Refills 0, Maintenance, [...] PM EDT, Aerosol, Route to Pharmacy Electronically, [id number], [facility]/pharmacy #[id number], 157.48, cm, 09/29/19 16:05:00 EDT, Height Start Date: 09/29/19 Status: Ordered Quantity: 8.5 Unit: g Repeat number: 12 Probiotic Formula 1 capsule, By Mouth, Daily, 0 Refills, Maintenance, 01/06/15 11:17:38 AM EDT Start Date: 01/06/15 Status: Ordered Repeat number: 1 riboflavin 100 mg oral tablet 1 tablet = 100 mg, By Mouth, Daily, # 30 tablet, 0 Refills, Maintenance, 02/27/24 1:28:00 PM EST, Tablet, [facility]/pharmacy #[id number], 160, cm, 02/27/24 12:58:00 EST, Height Start Date: 02/27/24 Status: Ordered Quantity: 30.0 Unit: tablet Repeat number: 1 SUMAtriptan 25 mg oral tablet 1 tablet, By Mouth, Daily, PRN NEEDED FOR MIGRAINE,JULY REPEAT DOSE AFTER 2 HOURS,MAX 2, DAILY., # 18 tablet, 5 Refills, Maintenance, 07/25/23 10:34:00 AM EDT, [facility]/pharmacy #[id number], 160, cm, 07/25/23 10:07:00 EDT, Height Start Date: 07/25/23 Status: Ordered Quantity: 18.0 Unit: tablet Repeat number: 6 Symbicort 160mcg/4.5mcg Inhaler 2, puffs, Inhalation, 2 times a day, # 10.2 Gm, Refills 11, Tot. Refills 11, Maintenance, 01/15/24 8:35:00 AM EST, Aerosol, Route to Pharmacy Electronically, [id number], [facility]/pharmacy #[id number], 160, cm, 01/08/24 9:08:00 EDT, Height Start Date: 01/15/24 Status: Ordered Quantity: 10.2 Unit: g Repeat number: 12 Problem List Condition Confirmation Course Effective Dates Status Health Status Informant Adenomatous colon polyp 1, 2 Confirmed Active Anxiety Confirmed Active Atrophic vaginitis Confirmed Active Chronic headaches Confirmed Active Foot pain, left Confirmed Active Left calcaneal fracture Confirmed Active Esophageal reflux Confirmed Active History of colonoscopy 3 Confirmed Active S/P lumbar microdiscectomy Confirmed Active Hypercholesterolemia Confirmed Active Hypertension Confirmed [...] surgery, repeat colo scheduled for November 2013. [id number]; repeat 20[address] Narayan yearly [...] Care team information Care Team Personnel Name: Chrissie MCDONNELL, Trace Coffman Position: S Physician - Primary Care Member Role: PCP Address: [address] [place] [address]- Telecom: Care Team Related Persons Name: JONG FARR Name: GRACE CARRIZALES Insurance Providers Guarantor name: [employer] [facility] Plan Information #: 1 Payer: [facility] [employer] Member Number: NA Policy Number: NA Group Number: NA
--- OUTSIDE RECORDS SUMMARY | 2024-03-16 11:00 | XMS_ITS | Continuity of Care Document ---
Author Organization [facility] Address [address] [place] [address]- Care Team Providers Care Ob/Gyn Name Role Phone Chrissie MCDONNELL, Trace Coffman Primary Care Physician [phone] Encounter [facility] [place] Date(s): 02/11/24 - 03/12/24 [facility] Adult [address] [place] [address]- Encounter Type: Triage Allergies, Adverse Reactions, Alerts [...] virus vaccine, inactivated 03/10/10 Eusebio rded SARS-CoV-2(COVID-19)mRNA-LNP vac([id number]) 11/12/23 Recorded RSV vaccine preF3, recombinant 12/18/22 Recorded SARS-CoV-2 (COVID-19) mRNA-1273 vaccine 12/06/22 R ecorded SARS-CoV-2 mRNA (mnkiuwc-obzb-azuuu) vax 7 12/01/21 Recorded SARS-CoV-2 mRNA (hojevzm-lucr-zmzzc) vax 05/19/21 Recorded Influenza Virus Vaccine (oldterm) [...] 1Result Comment: [facility]10/2018[facility] 2Result Comment: [01/07/2017] [facility] high dose 3Location History: [facility] 4Result Comment: [12/15/2015] [facility]SE [facility] 6Result Comment: [12/15/2014] [facility] 7Result Comment: Moderna Covid Bivalent Booster [facility] 8Result Comment: Flu shot high dose [facility] 9Result Comment: [01/29/2014] [facility] Medications albuterol 0.083% inhalation solution 3 [...] 9:40:00 AM EST, Route to Pharmacy Electronically, [facility]/pharmacy #[id number], Partial fill upon patient request [...] 1:32:00 PM EST, Route to Pharmacy Electronically, [facility]/pharmacy #[id number], 160, cm, 01/27/24 8:40:00 EST,Height Start [...] 3 Refills, Maintenance, 07/25/23 10:34:00 AM EDT, [facility]/pharmacy #[id number], 160, cm, 07/25/23 10:07:00 EDT, Height Start Date: 07/25/23 Status: Ordered Quantity: 90.0 Unit: capsule Repeat number: 4 fluticasone 50 mcg/inh nasal spray 1 sprays = 50 mcg, Nares, Both, 2 times a day, # 16 Gm, 11 Refills, Maintenance, 07/25/23 10:41:00 AM EDT, [place], [facility]/pharmacy #[id number], Partial fill upon patient request [...] PM EST, 02/27/24 1:27:00 PM EST, Tablet, [facility]/pharmacy #[id number], 160, cm, 02/27/24 12:58:00 EST, Height [...] PM EDT, Aerosol, Route to Pharmacy Electronically, [id number], [facility]/pharmacy #[id number], 157.48, cm, 09/29/19 16:05:00 EDT, [...] Refills, Maintenance, 02/27/24 1:28:00 PM EST, Tablet, [facility]/pharmacy #[id number], 160, cm, 02/27/24 12:58:00 EST, Height Start Date: 02/27/24 Status: Ordered Quantity: 30.0 Unit: tablet Repeat number: 1 SUMAtriptan 25 mg oral tablet 1 tablet, By Mouth, Daily, PRN NEEDED FOR MIGRAINE,MAY REPEAT DOSE AFTER 2 HOURS,MAX 2, DAILY., # 18 tablet, 5 Refills, Maintenance, 07/25/23 10:34:00 AM EDT, [facility]/pharmacy #[id number], 160, cm, 07/25/23 10:07:00 EDT, Height Start Date: 07/25/23 Status: Ordered Quantity: 18.0 Unit: tablet Repeat number: 6 Symbicort 160mcg/4.5mcg Inhaler 2, puffs, Inhalation, 2 times a day, # 10.2 Gm, Refills 11, Tot. Refills 11, Maintenance, 01/15/24 8:35:00 AM EST, Aerosol, Route to Pharmacy Electronically, [id number], [facility]/pharmacy #[id number], 160, cm, 01/08/24 9:08:00 EDT, [...] surgery, repeat colo scheduled for November 2013. [id number]; repeat [address] Narayan yearly 5Bone density 2020 osteopenia but no osteoporosis. 6Bone Density 2016; repeat 2018 7Osteoporosis on one view on bone density. [...] Personnel Name: Chrissie MCDONNELL, Trace Coffman Position: [facility] Physician - Primary Care Member Role: PCP Address: [address] [place] [address]- Telecom: Care Team Related Persons Name: JONG FARR Name: GRACE CARRIZALES Insurance Providers Guarantor name: PARISH FARR Health Plan Information #: 1 Payer: [facility] [employer]VANT[employer] RE[employer] Member Number: NA Policy Number: NA Group Number: NA
--- OUTSIDE RECORDS SUMMARY | 2024-03-16 11:00 | XMS_ITS | Continuity of Care Document ---
Author Organization [facility] Address [address] [place] [address]- Care Team Providers Care Manager Transfusion Name Role Phone Trace Dickens MD Primary Care Physician [phone] [facility] Date[place]s): 02/14/24 - 03/15/24 [facility] [address] [place], [place] [address] Attending Physician: Not on Staff, Attending MD Referring Physician: Trace Dickens MD Encounter Type: Pre Office Visit Allergies, [...] virus vaccine, inactivated 03/10/10 Eusebio rded SARS-CoV-2(COVID-19)mRNA-LNP vac([id number]) 11/12/23 Recorded RSV vaccine preF3, recombinant 12/18/22 Recorded SARS-CoV-2 (COVID-19) mRNA-1273 vaccine 12/06/22 R ecorded SARS-CoV-2 mRNA (gvfygpy-oqph-hunhu) vax 7 12/01/21 Recorded SARS-CoV-2 mRNA (qhcpyku-pbzz-ysncf) vax 05/19/21 Recorded Influenza Virus Vaccine (oldterm) [...] [facility]: [facility] 4Result Comment: [...] 9:40:00 AM EST, Route to Pharmacy Electronically, [facility]/pharmacy #[id number], Partial fill upon patient request [...] 1:32:00 PM EST, Route to Pharmacy Electronically, [facility]/pharmacy #[id number], 160, cm, 01/27/24 8:40:00 EST,Height [...] 3 Refills, Maintenance, 07/25/23 10:34:00 AM EDT, [facility]/pharmacy #[id number], 160, cm, 07/25/23 10:07:00 EDT, Height Start Date: 07/25/23 Status: Ordered Quantity: 90.0 Unit: capsule Repeat number: 4 fluticasone 50 mcg/inh nasal spray 1 sprays = 50 mcg, Nares, Both, 2 times a day, # 16 Gm, 11 Refills, Maintenance, 07/25/23 10:41:00 AM EDT, [place], [facility]/pharmacy #[id number], Partial fill upon patient request [...] PM EST, 02/27/24 1:27:00 PM EST, Tablet, [facility]/pharmacy #[id number], 160, cm, 02/27/24 12:58:00 EST, [...] PM EDT, Aerosol, Route to Pharmacy Electronically, [id number], [facility]/pharmacy #[id number], 157.48, cm, 09/29/19 16:05:00 EDT, [...] Refills, Maintenance, 02/27/24 1:28:00 PM EST, Tablet, [facility]/pharmacy #[id number], 160, cm, 02/27/24 12:58:00 EST, Height Start Date: 02/27/24 Status: Ordered Quantity: 30.0 Unit: tablet Repeat number: 1 SUMAtriptan 25 mg oral tablet 1 tablet, By Mouth, Daily, PRN NEEDED FOR MIGRAINE,JULY REPEAT DOSE AFTER 2 HOURS,MAX 2, DAILY., # 18 tablet, 5 Refills, Maintenance, 07/25/23 10:34:00 AM EDT, [id number], 160, cm, 07/25/23 10:07:00 EDT, Height Start Date: 07/25/23 Status: Ordered Quantity: 18.0 Unit: tablet Repeat number: 6 Symbicort 160mcg/4.5mcg Inhaler 2, puffs, Inhalation, 2 times a day, # 10.2 Gm, Refills 11, Tot. Refills 11, Maintenance, 01/15/24 8:35:00 AM EST, Aerosol, Route to Pharmacy Electronically, [id number], [facility]/pharmacy #[id number], 160, cm, 01/08/24 9:08:00 EDT, [...] surgery, repeat colo scheduled for November 2013. 13332; repeat [address] Narayan yearly [...] Personnel Name: Chrissie MCDONNELL, Trace Coffman Position: [facility] Physician - Primary Care Member Role: PCP Address: [address] [place] [address]- Telecom: Care Team Related Persons Name: JONG FARR Name: GRACE CARRIZALES Insurance Providers Guarantor name: [employer] Health Plan Information #: 1 Payer: [facility] [employer] Member Number: [id number] Policy Number: NA Group Number: [id number] Health Plan Information #: 2 Payer: [facility] [employer] Member Number: [id number] Policy Number: NA Group Number: NA
--- OUTSIDE RECORDS SUMMARY | 2024-03-16 11:01 | XMS_ITS | Continuity of Care Document ---
Author Organization [facility] Address [address] [place] [address]- Care Team Providers Care Pencil Sorter Name Role Phone Chrissie MCDONNELL, Trace Coffman Primary Care Physician En[place] [facility] Date(s): 02/27/24 - 03/05/24 [facility] Adult [address] [place] [address]- Encounter Diagnosis Hypertension(Discharge Diagnosis) - 02/27/24 Stage 3 severe chronic obstructive pulmonary disease by Global Initiative for Chronic Obstructive Lung Disease classification(Discharge Diagnosis) - 02/27/24 Chronic headaches(Discharge Diagnosis) - 02/27/24 Attending Physician: Shima Hyman NP Encounter Type: Office Visit Allergies, Adverse Reactions, [...] virus vaccine, inactivated 03/10/10 Eusebio rded SARS-CoV-2(COVID-19)mRNA-LNP vac([id number]) 11/12/23 Recorded RSV vaccine preF3, recombinant 12/18/22 Recorded SARS-CoV-2 (COVID-19) mRNA-1273 vaccine 12/06/22 R ecorded SARS-CoV-2 mRNA (ohqquev-qwep-licgo) vax 7 12/01/21 Recorded SARS-CoV-2 mRNA (jbzsxbd-nugs-ffnrv) vax 05/19/21 Recorded Influenza Virus Vaccine (oldterm) [...] Comment: [[facility]/10/2018] [facility] 3[facility] 4Result Comment: [12/15/2015] [facility] 5[facility] 6Result Comment: [12/15/2014] [facility] 7Result Comment: Moderna Covid Bivalent Booster [facility] 8Result Comment: Flu shot [facility] 9Result Comment: [01/29/2014] [facility] Medications albuterol 0.083% inhalation solution 3 mL = 2.5 mg, Inhalation, Every 6 hours, PRN asthma exacerbation, # 100 each, 11 Refills, Maintenance, 01/08/24 9:47:00 AM EDT, Solution, Partial fill upon patient request if the prescription is fora schedule II opioid drug. Start Date: 01/08/24 Status: Ordered Quantity: 100.0 Unit: each Repeat number: 12 amLODIPine 5 mg oral tablet 5 mg, 1, tablet, By Mouth, Daily, for 30 days, # 30 tablet, Refills 0, Tot. Refills 0, Acute 03/28/24 1:26:00 PM EST, 02/27/24 1:26:00 PM EST, Route to Pharmacy Electronically, [facility]/pharmacy #[id number], 160, cm, 02/27/24 12:58:00 EST, Height Start Date: 02/27/24 Stop Date: 03/28/24 Status: Ordered Quantity: 30.0 Unit: tablet Repeat number: 1 amLODIPine 5 mg oral tablet 10 mg, 2, tablet, By Mouth, Daily, for 30 days, # 60 tablet, Refills 0, Tot. Refills 0, Acute 04/27/24 1:26:00 PM EST, 03/28/24 1:26:00 PM EST, [id number], cm, 02/27/24 13:30:00 EST, Height Start Date: 03/28/24 Stop Date: 04/27/24 Status: Ordered Quantity: 60.0 Unit: tablet Repeat number: 1 atenolol 25 mg oral tablet 1, tablet, By Mouth, 2 times a day, # 180 tablet, Refills 1, Tot. Refills 1, Maintenance, 02/21/24 1:32:00 PM EST, Route to Pharmacy Electronically, [facility]/pharmacy #[id number], 160, cm, 01/27/24 8:40:00 EST,Height Start [...] 3 Refills, Maintenance, 07/25/23 10:34:00 AM EDT, [facility]/pharmacy #0693, 160, cm, 07/25/23 10:07:00 EDT, Height Start Date: 07/25/23 Status: Ordered Quantity: 90.0 Unit: capsule Repeat number: 4 fluticasone 50 mcg/inh nasal spray 1 sprays = 50 mcg, Nares, Both, 2 times a day, # 16 Gm, 11 Refills, Maintenance, 07/25/23 10:41:00 AM EDT, [place], [facility]/pharmacy #[id number], Partial fill upon patient request [...] PM EST, 02/27/24 1:27:00 PM EST, Tablet, [facility]/pharmacy #[id number], 160, cm, 02/27/24 12:58:00 EST, Height [...] PM EDT, Aerosol, Route to Pharmacy Electronically, [id number], [facility]/pharmacy #0693, 157.48, cm, 09/29/19 16:05:00 EDT, [...] Refills, Maintenance, 02/27/24 1:28:00 PM EST, Tablet, [facility]/pharmacy #[id number], 160, cm, 02/27/24 12:58:00 EST, Height Start Date: 02/27/24 Status: Ordered Quantity: 30.0 Unit: tablet Repeat number: 1 SUMAtriptan 25 mg oral tablet 1 tablet, By Mouth, Daily, PRN NEEDED FOR MIGRAINE,MAY REPEAT DOSE AFTER 2 HOURS,MAX 2, DAILY., # 18 tablet, 5 Refills, Maintenance, 07/25/23 10:34:00 AM EDT, [facility]/pharmacy #[id number], 160, cm, 07/25/23 10:07:00 EDT, Height Start Date: 07/25/23 Status: Ordered Quantity: 18.0 Unit: tablet Repeat number: 6 Symbicort 160mcg/4.5mcg Inhaler 2, puffs, Inhalation, 2 times a day, # 10.2 Gm, Refills 11, Tot. Refills 11, Maintenance, 01/15/24 8:35:00 AM EST, Aerosol, Route to Pharmacy Electronically, [id number], [facility]/pharmacy #[id number], 160, cm, 01/08/24 9:08:00 EDT, [...] surgery, repeat colo scheduled for November 2013. [id number]; repeat [address] Narayan yearly 5Bone density 2020 osteopenia but no osteoporosis. 6Bone Density 2016; repeat 2018 7Osteoporosis on one view on bone density. 8CT scan of Lung 2016: 7 mm nodule in the left thyroid lobe with adjacent 2 x 4 mm coarse calcification. Diagnosis Diagnosis Type Effective Dates Health Status Clinical Service Informant Hypertension Discharge Diagnosis 02/27/24 Stage 3 severe chronic obstructive pulmonary disease by Global Initiative for Chronic Obstructive Lung Disease classification Discharge Diagnosis 02/27/24 Chronic headaches Discharge Diagnosis 02/27/24 Vital Signs Most recent to oldest [Reference Range]: 1 2 3 Height 160 cm (02/27/24 1:30 PM) 160 cm (02/27/24 12:58 PM) 160 cm (02/27/24 12:52 PM) Weight 58 kg (02/27/24 12:52 PM) Oxygen Saturation [94-100 %] 96 % (02/27/24 12:52 PM) Pulse Rate [55-90 bpm] 62 bpm (02/27/24 12:52 PM) Body Mass Index [18.5-24.99 kg/m2] 22.66 kg/m2 (02/27/24 12:52 PM) Blood Pressure [90-138/55-84 mm Hg] 148/68mm Hg *H* (02/27/24 1:30 PM) 142/63mm Hg *H* (02/27/24 12:58 PM) 144/61mm Hg *H* (02/27/24 12:52 PM) Temperature [96.8-100.4 DegF] 97.8 DegF (02/27/24 12:52 PM) Mode of Delivery (Oxygen) Room air (02/27/24 12:52 PM) Blood pressure sites Arm, left (02/27/24 1:30 PM) Arm, left (02/27/24 12:58 PM) Arm, left (02/27/24 12:52 PM) Temperature Route Oral (02/27/24 12:52 PM) Weight Obtained Via Standing scale (02/27/24 12:52 PM) Social History Social History Type Response Smoking Status Former smoker, quit more than 30 days ago; Other: quit 2013; 1 ppd x 45 yrs; entered on: 11/04/20 Sex Sex Representation Female (finding) Patient Care team information Care Team Personnel Name: Chrissie MCDONNELL, Trace Coffman Position: S Physician - Primary Care Member Role: PCP Address: [address] [place] [id number] Telecom: Care Team Related Persons Name: JONG FARR Name: GRACE CARRIZALES Insurance Providers Guarantor name: PARISH FARR Health Plan Information #: 1 Payer: [facility] [employer] Member Number: [id number] Policy Number: NA Group Number: [id number] Health Plan Information #: 2 Payer: [facility] [employer] Member Number: [id number] Policy Number: NA Group Number: NA
--- OUTSIDE RECORDS SUMMARY | 2024-03-16 11:01 | XMS_ITS | Patient Health Record ---
[facility] Address [address] [address] Care Team Providers Care Supervisor Cutting And Sewing Room Name Role Phone Trace Dickens MD Primary Care Provider Santhosh Ramey Unavailable [phone] Allergies Allergen (clinical drug ingredient) Drug/Non Drug Allergy documented on EMR Reaction Allergy Type Onset Date Status Sunlight (uncoded) bumps Allergy A ctive meperidine Demerol vomiting Drug Allergy Active Sunscreen SPF30 Red Buring neutrogena /helioplex Drug Allergy Active Reason For Referral No Information Medications Medication SIG (Take, Route, Frequency, Duration) Notes Start Date End Date Status Hvleakywbw-HZTB-Ktkdwojc 50-325-40 MG 1 capsule as needed Orally [...] Date [employer] [place] Medicare Advantage [address] [facility] [address] [place] [address] [id number] Jodee Moe Self - patient is the insured Medical (General) History Medical History History ICD Code Broken bones Depression Headaches/Migraines High blood pressure Mumps Chicken pox Joint implants/screws Surgical History Surgery Date(Month/Year) back surgery 1973 broken heel, left 2009, 03/2011 colon polyps 2006 appendectomy 1974 ovarian surgery, right 1973
--- OUTSIDE RECORDS SUMMARY | 2024-03-16 11:01 | XMS_ITS | Continuity of Care Document ---
Author Organization [facility] Zhou lt Address [address] [place] [address]- Care Team Providers Care Substation Operator Automatic Name Role Phone Chrissie MCDONNELL, Trace Coffman Primary Care Physician Encounter [facility] Date(s): 02/14/24 - 03/15/24 [facility] Adult [address] [place] [address]- Encounter Type: Triage Allergies, Adverse Reactions, Alerts [...] virus vaccine, inactivated 03/10/10 Eusebio rded SARS-CoV-2(COVID-19)mRNA-LNP vac([id number]) 11/12/23 Recorded RSV vaccine preF3, recombinant 12/18/22 Recorded SARS-CoV-2 (COVID-19) mRNA-1273 vaccine 12/06/22 R ecorded SARS-CoV-2 mRNA (ujijgec-pobi-xdiko) vax 7 12/01/21 Recorded SARS-CoV-2 mRNA (wbvpfbp-uhin-ndpnq) vax 05/19/21 Recorded Influenza Virus Vaccine (oldterm) [...] [facility]: [facility] [01[facility]07[facility]2017[facility] high dose 3Location History: [facility] 4Result Comment: [12/15/2015] HIGH DOSE [facility] 6Result Comment: [12/15/2014] HIGH DOSE 7Result Comment: Moderna Covid Bivalent Booster [facility] 8Result Comment: Flu shot high dose [facility] 9Result Comment: [01/29/2014] [facility] Medications albuterol 0.083% inhalation solution [...] 9:40:00 AM EST, Route to Pharmacy Electronically, [facility]/pharmacy #[id number], Partial fill upon patient [...] 1:32:00 PM EST, Route to Pharmacy Electronically, [facility]/pharmacy #[id number], 160, cm, 01/27/24 8:40:00 EST,Height [...] 3 Refills, Maintenance, 07/25/23 10:34:00 AM EDT, [facility]/pharmacy #[id number], 160, cm, 07/25/23 10:07:00 EDT, Height Start Date: 07/25/23 Status: Ordered Quantity: 90.0 Unit: capsule Repeat number: 4 fluticasone 50 mcg/inh nasal spray 1 sprays = 50 mcg, Nares, Both, 2 times a day, # 16 Gm, 11 Refills, Maintenance, 07/25/23 10:41:00 AM EDT, [place], [facility]/pharmacy #[id number], Partial fill upon patient [...] PM EST, 02/27/24 1:27:00 PM EST, Tablet, [facility]/pharmacy #[id number], 160, cm, 02/27/24 12:58:00 EST, [...] PM EDT, Aerosol, Route to Pharmacy Electronically, [id number], [facility]/pharmacy #[id number], 157.48, cm, 09/29/19 16:05:00 [...] Refills, Maintenance, 02/27/24 1:28:00 PM EST, Tablet, [facility]/pharmacy #[id number], 160, cm, 02/27/24 12:58:00 EST, Height Start Date: 02/27/24 Status: Ordered Quantity: 30.0 Unit: tablet Repeat number: 1 SUMAtriptan 25 mg oral tablet 1 tablet, By Mouth, Daily, PRN NEEDED FOR MIGRAINE,MAY REPEAT DOSE AFTER 2 HOURS,MAX 2, DAILY., # 18 tablet, 5 Refills, Maintenance, 07/25/23 10:34:00 AM EDT, [facility]/pharmacy #[id number], 160, cm, 07/25/23 10:07:00 EDT, Height Start Date: 07/25/23 Status: Ordered Quantity: 18.0 Unit: tablet Repeat number: 6 Symbicort 160mcg/4.5mcg Inhaler 2, puffs, Inhalation, 2 times a day, # 10.2 Gm, Refills 11, Tot. Refills 11, Maintenance, 01/15/24 8:35:00 AM EST, Aerosol, Route to Pharmacy Electronically, [id number], [facility]/pharmacy #[id number], 160, cm, 01/08/24 9:08:00 [...] surgery, repeat colo scheduled for November 2013. [id number]; repeat [address] Narayan yearly [...] Personnel Name: Chrissie MCDONNELL, Trace Coffman Position: [facility] Physician - Primary Care Member Role: PCP Address: [address] [place] [address]- Telecom: Care Team Related Persons Name: JONG FARR Name: GRACE CARRIZALES Insurance Providers Guarantor name: PARISH FARR Health Plan Information #: 1 Payer: [facility] [employer] Member Number: NA Policy Number: NA Group Number: NA
== END 2024-03-16 10:05 | disposition home or self-care (01) ==
LOC: HO.HOSX 10:04
PROVIDERS: Visit Provider Physician Assistant
DX: Z13.89 Encounter for screening for other disorder (principal)

== ENCOUNTER 2024-03-20 08:36 | Outpatient (REF) | payer MEDICARE, SELFPAY ==
--- NOTE | ~2024-03-20 | XR_ITS ---
CLINICAL HISTORY: M79.673 - Pain in unspecified foot 3 view right foot Comparison: None Findings: Bones intact. No dislocations. Advanced degenerative change at the right 1st metatarsophalangeal joint. Mild interphalangeal joint space narrowing. No ankle effusion. No radiopaque foreign body. 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 No acute findings. This document has been electronically signed by: Trent Mann MD on 03/23/2024 10:47:29
--- OUTSIDE RECORDS SUMMARY | 2024-03-23 08:51 | XMS_ITS | Patient Health Record ---
Author Organization [facility] Address [address] [place] [address] Care Team Providers Care Local Telephone Operator Name Role Phone Trace Dickens MD Primary Care Provider Santhosh Ramey Unavailable [phone] Allergies Allergen (clinical drug ingredient) Drug/Non Drug Allergy documented on EMR Reaction Allergy Type Onset Date Status Sunlight (uncoded) bumps Allergy A ctive meperidine Demerol vomiting Drug Allergy Active Sunscreen SPF30 Red Buring neutrogena /helioplex Drug Allergy Active Reason For Referral No Information Medications Medication SIG (Take, Route, Frequency, Duration) Notes Start Date End Date Status Mvrjakdpam-MBAK-Tqhbpnuz 50-325-40 MG 1 capsule as needed Orally [...] Date [employer] [place] Medicare Advantage [address] [facility] [address] [place] [id number] Jodee Moe Self - patient is the insured Medical (General) History Medical History History ICD Code Broken bones Depression Headaches/Migraines High blood pressure Mumps Chicken pox Joint implants/screws Surgical History Surgery Date(Month/Year) back surgery 1973 broken heel, left 2009, 03/2011 colon polyps 2006 appendectomy 1974 ovarian surgery, right 1973
--- OUTSIDE RECORDS SUMMARY | 2024-03-23 08:51 | XMS_ITS | Continuity of Care Document ---
Author Organization [facility] Zhou lt Address [address] [place] [address]- Care Team Providers Care Head Of Transport Logistics Name Role Phone Chrissie MCDONNELL, Trace Coffman Primary Care Physician Encounter [facility] [place] Date(s): 02/21/24 - 03/22/24 [facility] Adult [address] [place] [address]- Encounter Type: Triage Allergies, Adverse Reactions, Alerts [...] virus vaccine, inactivated 03/10/10 Eusebio rded SARS-CoV-2(COVID-19)mRNA-LNP vac([id number]) 11/12/23 Recorded RSV vaccine preF3, recombinant 12/18/22 Recorded SARS-CoV-2 (COVID-19) mRNA-1273 vaccine 12/06/22 R ecorded SARS-CoV-2 mRNA (sbocass-gwin-nuzhg) vax 7 12/01/21 Recorded SARS-CoV-2 mRNA (injwqff-zlog-bwszo) vax 05/19/21 Recorded Influenza Virus Vaccine (oldterm) [...] 1Result Comment: [01/10/2018] [facility] 2Result Comment: [01/07/2017] [facility] high dose 3Location History[facility] 4Result Comment: [12/15/2015] HIGH DOSE 5Location History[facility] 6Result Comment: [12/15/2014] HIGH DOSE 7Result Comment: Moderna Covid Bivalent Booster [facility] 8Result Comment: Flu shot high dose [facility] 9Result Comment: [01/29/2014] [facility] Medications albuterol 0.083% inhalation solution 3 [...] 9:40:00 AM EST, Route to Pharmacy Electronically, [facility]/pharmacy #[id number], Partial fill upon patient request [...] 1:32:00 PM EST, Route to Pharmacy Electronically, [facility]/pharmacy #[id number], 160, cm, 01/27/24 8:40:00 EST,Height [...] 3 Refills, Maintenance, 07/25/23 10:34:00 AM EDT, [facility]/pharmacy #[id number], 160, cm, 07/25/23 10:07:00 EDT, Height Start Date: 07/25/23 Status: Ordered Quantity: 90.0 Unit: capsule Repeat number: 4 fluticasone 50 mcg/inh nasal spray 1 sprays = 50 mcg, Nares, Both, 2 times a day, # 16 Gm, 11 Refills, Maintenance, 07/25/23 10:41:00 AM EDT, [place], [facility]/pharmacy #[id number], Partial fill upon patient request [...] PM EST, 02/27/24 1:27:00 PM EST, Tablet, [facility]/pharmacy #[id number], 160, cm, 02/27/24 12:58:00 EST, [...] PM EDT, Aerosol, Route to Pharmacy Electronically, [id number], [facility]/pharmacy #[id number], 157.48, cm, 09/29/19 16:05:00 EDT, [...] Refills, Maintenance, 02/27/24 1:28:00 PM EST, Tablet, [facility]/pharmacy #[id number], 160, cm, 02/27/24 12:58:00 EST, Height Start Date: 02/27/24 Status: Ordered Quantity: 30.0 Unit: tablet Repeat number: 1 SUMAtriptan 25 mg oral tablet 1 tablet, By Mouth, Daily, PRN NEEDED FOR MIGRAINE,MAY REPEAT DOSE AFTER 2 HOURS,MAX 2, DAILY., # 18 tablet, 5 Refills, Maintenance, 07/25/23 10:34:00 AM EDT, [facility]/pharmacy #[id number], 160, cm, 07/25/23 10:07:00 EDT, Height Start Date: 07/25/23 Status: Ordered Quantity: 18.0 Unit: tablet Repeat number: 6 Symbicort 160mcg/4.5mcg Inhaler 2, puffs, Inhalation, 2 times a day, # 10.2 Gm, Refills 11, Tot. Refills 11, Maintenance, 01/15/24 8:35:00 AM EST, Aerosol, Route to Pharmacy Electronically, [id number], [facility]/pharmacy #[id number], 160, cm, 01/08/24 9:08:00 EDT, [...] surgery, repeat colo scheduled for November 2013. [id number]; repeat [address] Narayan yearly [...] - Primary Care Member Role: PCP Address: [address] [place] [phone]- Telecom: Care Team Related Persons Name: JONG FARR Name: GRACE CARRIZALES Insurance Providers Guarantor name: PARISHBRITTANY FARR Health Plan Information #: 1 Payer: [facility] [employer] Member Number: NA Policy Number: NA Group Number: NA
== END 2024-03-20 08:37 | disposition home or self-care (01) ==
LOC: HO.HOSX 08:36
PROVIDERS: Visit Provider Physician Assistant
DX: M79.673 Pain in unspecified foot (principal); S90.31XA Contusion of right foot, initial encounter
CPT/HCPCS: 73630; 99202

== ENCOUNTER 2024-03-20 10:16 | Outpatient (AMB) | payer MEDICARE, SELFPAY ==
--- NOTE | 2024-03-20 10:18 | MHC.OFFVIS ---
Intake Visit Reasons: FC- Metatarsal fracture, Foot fC, RT-DOI 02/22/24 Intake Note: Jodee is a 78 year old female who presents today for a evaluation of her right metatarsal fx, DOI 02/24/24. Patient was given a post operative shoe with crutches at the ED. Patient reports a heavy wooden shut her fell directly onto her right foot. She states that she is feeling better today. She mentions some tenders on top of her foot Allergies NSAIDS (Non-Steroidal Anti-Inflamma [NSAIDS] Allergy (Intermediate, Verified 03/02/24 08:12) DECREASE PLATELETS meperidine [From Demerol] Adverse Reaction (Mild, Verified 03/02/24 08:12) VOMITING nicotine [Nicoderm CQ] Adverse Reaction (Mild, Verified 03/02/24 08:12) rash HPI HPI FC- Metatarsal fracture, Foot fC, RT-DOI 02/22/24: Details: Ms. Moe is a 78-year-old female who presented to the emergency department on 03/02/2024 with complaints of right foot pain x1 week. Patient reports that a heavy wooden shut her fell directly onto her right foot on 02/24/2024. She reports that the next several days after her injury she developed an increase in swelling, bruising, and pain to her right foot. While in the ED x-rays were obtained and she was told that she had a fracture of the right foot. She was given a postop shoe and instructed to follow up with orthopedics outpatient for further evaluation and treatment. [facility] Medical History Hypertension Social History (Updated 03/20/24 @ 10:35 by Amy Garza) Alcohol intake: never Patient Tobacco Use Status: Former Tobacco user Current occupational status: retired Review of Systems Const All systems reviewed & are unremarkable except as noted in HPI and below Physical Exam Const General: cooperative, healthy appearing and no acute distress Resp Effort & Inspection: normal respiratory effort and able to speak in complete sentences Cardio Rate: regular rate Peripheral pulses: Peripheral pulses 2+ throughout Skin Lesions: no lesions Rashes: no rashes Extrem Other: Right foot resolving ecchymosis and edema along the dorsal aspect of the foot just proximal to the metatarsal heads. Tenderness to palpation over the 2nd 3rd and 4th metatarsals. Able to dorsiflex and plantar flex pronate and supinate and ranged without difficulty. NVI. Assessment & Plan Assessment & Plan (1) Contusion of right foot: Code(s): S90.31XA - Contusion of right foot, initial encounter Category: Medical Plan: Ms. Moe is a 78-year-old female who presented to the emergency department on 03/02/2024 with complaints of right foot pain x1 week. Patient reports that a heavy wooden shut her fell directly onto her right foot on 02/24/2024. She reports that the next several days after her injury she developed an increase in swelling, bruising, and pain to her right foot. While in the ED x-rays were obtained and she was told that she had a fracture of the right foot. She was given a postop shoe and instructed to follow up with orthopedics outpatient for further evaluation and treatment. Patient presents to the office today in a supportive sneaker. She reports that the postoperative she was causing an increase in pain on the dorsal aspect of the foot. Patient may continue wearing a supportive walking sneaker. She has full range of motion and therefore physical therapy was deferred at this time. Educated the patient that she can resume back to normal activities as tolerated using pain as her guide. Should she have an increase in pain she should back off on her activity levels. I have provided the patient with my business card should she have continuing pain or any additional questions she will contact our office. Otherwise, she will follow up p.r.n., sooner if needed. X-rays obtained in the office today of the right foot were reviewed by me and reveal re demonstration of mild periosteal reaction along the proximal medial third metatarsal shaft and proximal lateral fourth metatarsal shaft. Orders: Orders XR foot RT min 3V Today M79.673 - Pain in unspecified foot Coding Level of Care Code New Pt Level 3 (42822) Diagnoses Contusion of right foot S90.31XA
--- OUTSIDE RECORDS SUMMARY | 2024-03-20 10:22 | XMS_ITS | Patient Health Record ---
[facility] Address [address] [place] [address] Care Team Providers Care Mold Shaker Name Role Phone Trace Dickens MD Primary Care Provider Santhosh Ramey Unavailable [phone] Allergies Allergen (clinical drug ingredient) Drug/Non Drug Allergy documented on EMR Reaction Allergy Type Onset Date Status Sunlight (uncoded) bumps Allergy A ctive meperidine Demerol vomiting Drug Allergy Active Sunscreen SPF30 Red Buring neutrogena /helioplex Drug Allergy Active Reason For Referral No Information Medications Medication SIG (Take, Route, Frequency, Duration) Notes Start Date End Date Status Njqxqkziab-PORA-Tsugffjq 50-325-40 MG 1 capsule as needed Orally [...] Date [employer] [place] Medicare Advantage [address] [facility] [address] [place] [address] [id number] Jodee Moe Self - patient is the insured Medical (General) History Medical History History ICD Code Broken bones Depression Headaches/Migraines High blood pressure Mumps Chicken pox Joint implants/screws Surgical History Surgery Date(Month/Year) back surgery 1973 broken heel, left 2009, 03/2011 colon polyps 2006 appendectomy 1974 ovarian surgery, right 1973
--- OUTSIDE RECORDS SUMMARY | 2024-03-20 10:22 | XMS_ITS | Continuity of Care Document ---
Author Organization [facility] Zhou lt Address [address] [place] [address]- Care Team Providers Care International Representative Name Role Phone Trace Dickens MD Primary Care Physician Encounter [facility] Date(s): 03/09/24 - 03/16/24 [facility] Adult [address] [place] [address]- Encounter Diagnosis Hypertension(Discharge Diagnosis) - 03/09/24 Frequent urination(Discharge Diagnosis) - 03/09/24 Chronic headaches(Discharge Diagnosis) - 03/09/24 Foot fracture, right(Discharge Diagnosis) - 03/09/24 Stage 3 severe chronic obstructive pulmonary disease by Global Initiative for Chronic Obstructive Lung Disease classification(Discharge Diagnosis) - 03/09/24 Attending Physician: Trace Dickens MD Encounter Type: Office [...] virus vaccine, inactivated 03/10/10 Eusebio rded SARS-CoV-2(COVID-19)mRNA-LNP vac(lej146) 11/12/23 Recorded RSV vaccine preF3, recombinant 12/18/22 Recorded SARS-CoV-2 (COVID-19) mRNA-1273 vaccine 12/06/22 R ecorded SARS-CoV-2 mRNA (uwnnvrl-sptp-cgnsx) vax 7 12/01/21 Recorded SARS-CoV-2 mRNA (fuquwgw-iuzv-tdvyx) vax 05/19/21 Recorded Influenza Virus Vaccine (oldterm) [...] [facility]: [facility]2017[facility] 3[facility] 4[facility] Comment: [...] 9:40:00 AM EST, Route to Pharmacy Electronically, [facility]/pharmacy #[id number], Partial fill upon [...] 1:32:00 PM EST, Route to Pharmacy Electronically, [facility]/pharmacy #[id number], 160, cm, 01/27/24 8:40:00 EST,Height [...] 3 Refills, Maintenance, 07/25/23 10:34:00 AM EDT, [id number], 160, cm, 07/25/23 10:07:00 EDT, Height Start Date: 07/25/23 Status: Ordered Quantity: 90.0 Unit: capsule Repeat number: 4 fluticasone 50 mcg/inh nasal spray 1 sprays = 50 mcg, Nares, Both, 2 times a day, # 16 Gm, 11 Refills, Maintenance, 07/25/23 10:41:00 AM EDT, [place], [id number], Partial fill upon patient request if [...] PM EST, 02/27/24 1:27:00 PM EST, Tablet, [facility]/pharmacy #[id number], 160, cm, 02/27/24 12:58:00 EST, [...] PM EDT, Aerosol, Route to Pharmacy Electronically, [id number], [facility]/pharmacy #[id number], 157.48, cm, 09/29/19 [...] Refills, Maintenance, 02/27/24 1:28:00 PM EST, Tablet, [facility]/pharmacy #[id number], 160, cm, 02/27/24 12:58:00 EST, Height Start Date: 02/27/24 Status: Ordered Quantity: 30.0 Unit: tablet Repeat number: 1 SUMAtriptan 25 mg oral tablet 1 tablet, By Mouth, Daily, PRN NEEDED FOR MIGRAINE,MAY REPEAT DOSE AFTER 2 HOURS,MAX 2, DAILY., # 18 tablet, 5 Refills, Maintenance, 07/25/23 10:34:00 AM EDT, [facility]/pharmacy #[id number], 160, cm, 07/25/23 10:07:00 EDT, Height Start Date: 07/25/23 Status: Ordered Quantity: 18.0 Unit: tablet Repeat number: 6 Symbicort 160mcg/4.5mcg Inhaler 2, puffs, Inhalation, 2 times a day, # 10.2 Gm, Refills 11, Tot. Refills 11, Maintenance, 01/15/24 8:35:00 AM EST, Aerosol, Route to Pharmacy Electronically, [id number], [facility]/pharmacy #[id number], 160, cm, 01/08/24 [...] surgery, repeat colo scheduled for November 2013. [id number]; repeat [address] Narayan yearly 5Bone density 2020 osteopenia but no osteoporosis. 6Bone Density 2017; repeat 2019 7Osteoporosis on one view on bone density. 8CT scan of Lung 2016: 7 mm nodule in the left thyroid lobe with adjacent 2 x 4 mm coarse calcification. Diagnosis Diagnosis Type Effective Dates Health Status Clinical Service Informant Hypertension Discharge Diagnosis 03/09/24 Frequent urination Discharge Diagnosis 03/09/24 Chronic headaches Discharge Diagnosis 03/09/24 Foot fracture, right Discharge Diagnosis 03/09/24 Stage 3 severe chronic obstructive pulmonary disease by Global Initiative for Chronic Obstructive Lung Disease classification Discharge Diagnosis 03/09/24 Vital Signs Most recent to oldest [Reference Range]: 1 2 Height 160 cm (03/09/24 9:50 AM) 160 cm (03/09/24 9:17 AM) Weight 58.3 kg (03/09/24 9:17 AM) Oxygen Saturation [94-100 %] 97 % (03/09/24 9:17 AM) Pulse Rate [55-90 bpm] 64 bpm (03/09/24 9:17 AM) Body Mass Index [18.5-24.99 kg/m2] 22.77 kg/m2 (03/09/24 9:17 AM) Blood Pressure [90-138/55-84 mm Hg] 122/ 64mm Hg (03/09/24 9:50 AM) Mode of Delivery (Oxygen) Room air (03/09/24 9:17 AM) Blood pressure sites Arm, left (03/09/24 9:17 AM) Weight Obtained Via Standing scale (03/09/24 9:17 AM) Social History Social History Type Response Smoking Status Former smoker, quit more than 30 days ago; Other: quit 2013; 1 ppd x 45 yrs; entered on: 11/04/20 Sex Sex Representation Female (finding) Note * Lilly Jorge: PERFORM Event Display: Patient Education/Instruction Authored Date: [id number] Ambulatory Adult Visit Summary [facility] Adult [facility] [address] [place] [address] Name: PARISH FARR : 1945?? Visit: 03/09/2024 09:12?? Ambulatory Visit Instructions ?? Your Care Team Primary Care Provider Chrissie MCDONNELL, Trace Coffman? This Visit Provider [place] Nargis MONIQUE Vitals Signs Pulse Rate: 64 bpm Height: 160 cm Oxygen Saturation: 97 % Weight: 58.3 kg ?? Body Mass Index: 22.77 kg/m2 ?? Body surface area: 1.61 What to do next Scheduled Follow-Up Appointments 2024 2:20 PM EST ?? With: Errol Bojorquez MD Where: [facility] Status: Pending 2024 10:10 AM EST ?? With: Nargis Salmon NP Where: [facility] [address] [place] [address]- Status: Pending Follow-Up Appointments Follow Up with??Nargis Salmon NP When:??In 2 months Why: 40 min Where: [address] [place] [address] [place] [address]- Business (1) Medications The list below reflects the information in our records and provided by you today along with any changes made during this visit. Please continue your medications until treatment is completed or stopped by your provider. If this is different from the information you have or there are other questions,please contact the prescribing provider. What How Much When Instructions Changed Amlodipine (amLODIPine 10 mg oral tablet) 1 tab(s) Oral Daily Pickup at [facility]/pharmacy #[id number] Unchanged Albuterol (albuterol 0.083% inhalation solution) 3 Milliliter Inhalation Every 6 hours as needed for asthma exacerbation Unchanged Albuterol (ProAir HFA 90 mcg/ inh inhalation aerosol with adapter) 2 puff(s) Inhalation Every 6 hours as needed for Wheezing/Shortness of Breath Unchanged Atenolol (atenolol 25 mg oral tablet) 1 tab(s) Oral Twice a day Unchanged bifidobacterium-lactobacillus (Probiotic Formula) 1 capsule Oral Daily Unchanged Budesonide-Formoterol (Symbicort 160mcg/ 4.5mcg Inhaler) 2 puff(s) Inhalation Twice a day Unchanged Durable Medical Equipment (Nebulizer/ Compressor) See instructions Use 4 times a day as needed for COPD exacerbation. ?? Unchanged Fluoxetine (FLUoxetine 40 mg oral capsule) 1 capsule Oral Daily Unchanged Fluticasone Nasal (fluticasone 50 mcg/ inh nasal spray) 1 spray(s) Nares, Both Twice a day Unchanged Magnesium Oxide (magnesium oxide 400 mg oral tablet) 1 tab(s) Oral Daily Duration: 30 Days Unchanged Miscellaneous Rx (Misc Rx) See instructions over the counter Healthy Lung 1 tablet daily ?? Unchanged Miscellaneous Rx (PREVAGEN) Unchanged Multivitamin With Minerals (Centrum Silver) Oral Daily Unchanged Riboflavin (riboflavin 100 mg oral tablet) 1 tab(s) Oral Daily Unchanged Sumatriptan (SUMAtriptan 25 mg oral tablet) 1 tab(s) Oral Daily as needed for NEEDED FOR MIGRAINE,MAY REPEAT DOSE AFTER 2 HOURS,MAX 2 DAILY. ?? Pharmacy Information [facility]/pharmacy #[id number]: [address] [place], [place] [id number] [phone] Medications and Immunizations Administered Medications Given During Visit No medications given during this visit.?? Allergies (NKA means No Known Allergies) Demerol HCl??(vomiting) Common Emergency Awareness Tips IS IT A STROKE? Act FAST and Check for these signs: FACE Does the face look uneven? ARM Does one arm drift down? SPEECH Does their speech sound strange? TIME Call at any sign of stroke ?? Heart Attack Signs Chest discomfort: Most heart attacks involve discomfort in the center of the chest and lasts more than a few minutes, or goes away and comes back. It can feel like uncomfortable pressure, squeezing, fullness or pain. Discomfort in upper body: Symptoms can include pain or discomfort in one or both arms, back, neck, jaw or stomach. Shortness of breath: With or without discomfort. Other signs: Breaking out in a cold sweat, nausea, or lightheaded. Remember, MINUTES DO MATTER. If you experience any of these heart attack warning signs, call to get immediate medical attention! ?? Smoking can increase your chances of developing chronic health problems and can cause harmful effects to other family members in your house. If you smoke, you are strongly encouraged to quit. Please call [employer] at [phone] or 5-197-315Bloomfire ([phone]) or log in to [email or web address] for referrals to smoking cessation programs. ?? The National Suicide Prevention Hotline is available 01/10 if you or someone you know needs to find a reason to keep living. By calling 3-948-383-talk (8255) you'll be connected to a skilled, trained counselor at a crisis center in your area. [facility] Portal You can view and manage your care through the patient portal or by using a health care sreedhar of your choosing. [employer] is a website that allows you to securely view your medical information including your hospital discharge summary, office visit summaries, medications and follow-up visits. You can also request appointments, renew medications, and request access to your medical information using a health care sreedhar of your choosing, or just ask a question. You can enroll at [email or web address] or register during your next office visit. [facility], in keeping with [facility] guidance, no longer requires face masks for staff, patientsor visitors in most situations. Similiar to time spent indoors at other locations, there is the chance that you were exposed to repiratory viruses during your time with us (such as flu or COVID-19). If you develop symptoms concerning for a viral respiratory infection, please seek testing (and treatment if indicated) from your medical provider or home test kit. ?? Disclaimer: The information provided is of a general nature and is intended to be used in conjunction with the recommendations and advice of your health care practitioner. Every effort has been made to ensure that the information provided is accurate and complete at the time it is provided to you however, as your needs change, or, as new information becomes available, different or additional instructions may be required. ?? If you have questions, please consult with your primary care provider or pharmacist, as appropriate. This information is not intended to serve as substitution for assessment and evaluation by a qualified health care provider. If you do not have a primary care provider, you may find a [facility] provider by calling [facility] at [phone]. Patient Care team information Care Team Personnel Name: Trace Dickens MD Position: [facility] Physician - Primary Care Member Role: PCP Address: [address] [place] [address]- Telecom: Care Team Related Persons Name: JONG FARR Name: GRACE CARRIZALES Insurance Providers Guarantor name: PARISH YORDAN Health Plan Information #: 1 Payer: [facility] [employer] Member Number: [id number] Policy Number: NA Group Number: [id number] Health Plan Information #: 2 Payer: [facility] [employer] Member Number: [id number] Policy Number: NA Group Number: NA
== END 2024-03-20 10:46 | disposition home or self-care (01) ==
PROVIDERS: PCP Internal Medicine; Visit Provider Physician Assistant
DX: S90.31XA Contusion of right foot, initial encounter (principal)
CPT/HCPCS: 99203